=== PATIENT | female | born 1940 | race Caucasian/White ===

== ENCOUNTER 2018-11-10 08:44 | Emergency (ER) | payer MEDICARE, MEDICAID ==
[~2018-11-10] VITALS: Ht 152.4 cm; Wt 60.0 kg
[~2018-11-10 08:44] MED LIST: ACET-2178 PO; ALBU18HF2 IH; ALEN70TA68 PO; AMLO10TA80 PO; ASPI-1393 PO; BECL8.7A6 INH; CALC-38 PO; CYCL5TAB PO; FERR325T6 PO; FOLI-43 PO; FURO40TA5 PO; GABA-529 PO; LEVO100T9 PO; LOSA50TA41 PO; METF-416 PO; OCD PO; OMEP20TA2 PO; SITA100T11 PO
[2018-11-10 10:45] LABS: BASOPHILS % 0.9 % (0.0-2.0); EOSINOPHILS % 0.5 % (0.0-5.0); HEMATOCRIT. 41.7 % (36.0-48.0); HEMOGLOBIN. 14.2 g/dL (12.0-16.0); LYMPHOCYTES % 23.5 % (20.0-50.0); MEAN CORPUSCULAR HEMOGLOBIN 27.9 pg (28.0-32.0); MEAN CORPUSCULAR VOLUME 81.8 fL (81.0-99.0); MEAN PLATELET VOLUME 9.6 fl (7.4-10.4); MONOCYTES % 6.1 % (2.0-8.0); PLATELET 137 x1000/uL (130-400); RED BLOOD CELL COUNT 5.09 mill/uL (4.2-5.4); RED CELL DISTRIBUTION WIDTH 14.3 % (11.6-14.6)
[2018-11-10 10:49] LABS: CHLORIDE 102 mEq/L (98-107)
[2018-11-10] MEDS ORDERED: SODIUM CHLORIDE 0.9% 1,000 ML IV ONE (11:25)
[2018-11-10] MEDS ORDERED: TRAMADOL 50MG TABLET PO ONE (11:30)
[2018-11-10] MEDS ORDERED: INSULIN REGULAR (HUMULIN R) 300UNITS/3ML IV ONE (11:30)
[2018-11-10 12:33] VITALS: BP 141/50
[2018-11-10] MEDS ORDERED: CLOTRIMAZOLE 1% CREAM 30GM TOP SCH (21:00)
== END 2018-11-10 12:47 | disposition home or self-care (01) ==
LOC: ER 08:44
DX: N76.2 Acute vulvitis (principal); B37.3 Candidiasis of vulva and vagina; E11.65 Type 2 diabetes mellitus with hyperglycemia; I10 Essential (primary) hypertension; Z79.4 Long term (current) use of insulin
CPT/HCPCS: 36415; 80053; 85025; 93005; 96374; 99284; J1815; J7030

== ENCOUNTER 2020-05-15 08:57 | Inpatient (IN) | payer MEDICARE, MEDICAID ==
[~2020-05-15] VITALS: Ht 152.4 cm; Wt 55.8 kg
[~2020-05-15 08:57] MED LIST changes: -ACET-2178 PO; -ALBU18HF2 IH; -ALEN70TA68 PO; -ASPI-1393 PO; +ASPI-1497 PO; -BECL8.7A6 INH; -CALC-38 PO; -CYCL5TAB PO; -FERR325T6 PO; -FOLI-43 PO; -FURO40TA5 PO; -GABA-529 PO; -LOSA50TA41 PO; -OCD PO; -OMEP20TA2 PO; -SITA100T11 PO; +TOPUD PO
[2020-05-15] MEDS ORDERED: IPRATROPIUM BROMIDE (0.02%) 0.5MG/2.5ML NEB HHN STA (09:39)
[2020-05-15] MEDS ORDERED: ALBUTEROL (0.083%) 2.5MG/3ML NEB HHN STA (09:39)
[2020-05-15] MEDS ORDERED: SODIUM CHLORIDE 0.9% 250 ML IV ONE (09:45)
[2020-05-15] MEDS ORDERED: ASPIRIN 81MG TABLET PO ONE (09:45)
[2020-05-15 10:39] LABS: BASOPHILS % 0.7 % (0.0-2.0); EOSINOPHILS % 0.1 % (0.0-5.0); HEMOGLOBIN. 11.8 g/dL (12.0-16.0); LYMPHOCYTES % 9.5 % (20.0-50.0); MEAN CORPUSCULAR VOLUME 82.2 fL (81.0-99.0); MEAN PLATELET VOLUME 9.6 fl (7.4-10.4); MONOCYTES % 6.8 % (2.0-8.0); NEUTROPHILS % 82.9 % (40.0-76.0); PLATELET 122 x1000/uL (130-400); RED BLOOD CELL COUNT 4.38 mill/uL (4.2-5.4); RED CELL DISTRIBUTION WIDTH 15.8 % (11.6-14.6)
[2020-05-15 10:47] LABS: CHLORIDE 106 mEq/L (98-107)
[2020-05-15 10:50] LABS: D-DIMER 3.43 mg/L FEU (<0.50); INR 1.1; PROTHROMBIN TIME 11.7 sec (9.6-11.0)
[2020-05-15] MEDS ORDERED: LEVOFLOXACIN 750MG PREMIX 150 ML IV ONE (11:00)
[2020-05-15 11:44] LABS: CLARITY URINE CLEAR (CLEAR); COLOR URINE YELLOW (YELLOW); KETONES URINE NEGATIVE (NEGATIVE); LEUKOCYTE ESTERASE URINE TRACE (NEGATIVE); NITRITE URINE NEGATIVE (NEGATIVE); OCCULT BLOOD URINE NEGATIVE (NEGATIVE); PROTEIN URINE TRACE (NEGATIVE); UROBILINOGEN URINE 0.2 E.U./dL (0.2-1.0)
[2020-05-15] MEDS ORDERED: LEVOFLOXACIN 500MG PREMIX 100 ML IV SCH (13:15)
[2020-05-15] MEDS ORDERED: ACETAMINOPHEN 325MG TABLET PO PRN (13:15)
[2020-05-15] MEDS ORDERED: DOCUSATE SODIUM 100MG CAPSULE PO PRN (13:15)
[2020-05-15] MEDS ORDERED: ONDANSETRON HCL 4MG/2ML INJ IV PRN (13:15)
[2020-05-15] MEDS ORDERED: CLONIDINE 0.1MG TABLET PO PRN (13:15)
[2020-05-15] MEDS ORDERED: ENOXAPARIN 40MG/0.4ML SYR SUBCUT SCH (13:15)
[2020-05-15] MEDS ORDERED: MAGNESIUM/ALUMINUM HYDROXIDE/SIMETHICONE 30ML UDC PO PRN (13:15)
[2020-05-15] MEDS ORDERED: GUAIFENESIN 200MG/10ML SUGAR FREE UDC PO PRN (13:15)
[2020-05-15] MEDS ORDERED: DILTIAZEM HCL 30MG TABLET PO PRN (13:30)
[2020-05-15] MEDS ORDERED: IOHEXOL-350 100 ML BOTTLE ONE (14:55)
[2020-05-15] MEDS: ENOXAPARIN 60MG/0.6ML SYR SUBCUT SCH (16:00)
[2020-05-15] MEDS ORDERED: METOPROLOL TARTRATE 25MG TABLET PO SCH (17:00)
[2020-05-15] MEDS ORDERED: DEXTROSE 50% WATER 50ML SYRINGE IV PRN (22:45)
[2020-05-15] MEDS ORDERED: ATOR40TA70 PO (23:48)
[2020-05-15 23:49] VITALS: BP 124/68
[2020-05-16 00:01] VITALS: BP 108/54
[2020-05-16 04:18] VITALS: BP 111/57
[2020-05-16] MEDS: LEVOTHYROXINE SODIUM 100MCG TABLET PO SCH (06:03)
[2020-05-16] MEDS: ENOXAPARIN 60MG/0.6ML SYR SUBCUT SCH ×2 (06:03→18:25)
[2020-05-16 06:05] LABS: CHLORIDE 108 mEq/L (98-107)
[2020-05-16] MEDS: BLOOD SUGAR DIAGNOSTIC STRIP TEST SCH ×4 (06:08→20:50)
[2020-05-16] MEDS: INSULIN LISPRO 100 UNITS/ML SUBCUT SCH ×4 (06:08→21:01)
[2020-05-16 06:12] LABS: LDL CHOLESTEROL 26 mg/dL (5-100)
[2020-05-16 06:13] LABS: HDL CHOLESTEROL 32 mg/dL (40-59); T4 FREE 1.44 ng/dL (0.76-1.46)
[2020-05-16 06:20] LABS: BASOPHILS % 0.5 % (0.0-2.0); EOSINOPHILS % 0.6 % (0.0-5.0); HEMATOCRIT. 35.1 % (36.0-48.0); HEMOGLOBIN. 11.6 g/dL (12.0-16.0); LYMPHOCYTES % 13.4 % (20.0-50.0); MEAN CORPUSCULAR HEMOGLOBIN 27.3 pg (28.0-32.0); MEAN CORPUSCULAR VOLUME 82.4 fL (81.0-99.0); MEAN PLATELET VOLUME 9.6 fl (7.4-10.4); MONOCYTES % 9.7 % (2.0-8.0); NEUTROPHILS % 75.8 % (40.0-76.0); PLATELET 117 x1000/uL (130-400); RED BLOOD CELL COUNT 4.26 mill/uL (4.2-5.4); RED CELL DISTRIBUTION WIDTH 15.7 % (11.6-14.6)
[2020-05-16 08:00] VITALS: BP 110/55
[2020-05-16] MEDS: ASPIRIN 81MG EC TABLET PO SCH (08:49)
[2020-05-16] MEDS ORDERED: LEVOFLOXACIN 500MG PREMIX 100 ML IV SCH (09:00)
[2020-05-16] MEDS ORDERED: POTASSIUM CHLORIDE 20MEQ TABLET SR PO NR (10:30)
[2020-05-16 12:00] VITALS: BP 105/56
[2020-05-16] MEDS: POTASSIUM CHLORIDE 20MEQ TABLET SR PO SCH (13:15)
[2020-05-16 16:00] VITALS: BP 113/58
[2020-05-16 16:17] LABS: CREATINE KINASE 33 IU/L (26-192)
[2020-05-16 16:18] LABS: CREATINE KINASE MB FRACTION < 1.0 ng/mL (0.5-3.6)
[2020-05-16 20:00] VITALS: BP 113/86
[2020-05-17] VITALS: BP 142/55
[2020-05-17 00:25] LABS: CREATINE KINASE 29 IU/L (26-192); CREATINE KINASE MB FRACTION < 1.0 ng/mL (0.5-3.6)
[2020-05-17 04:00] VITALS: BP 107/72
[2020-05-17] MEDS: ENOXAPARIN 60MG/0.6ML SYR SUBCUT SCH ×2 (05:35→18:14)
[2020-05-17 07:05] LABS: BASOPHILS % 0.7 % (0.0-2.0); EOSINOPHILS % 2.7 % (0.0-5.0); HEMATOCRIT. 34.1 % (36.0-48.0); HEMOGLOBIN. 11.4 g/dL (12.0-16.0); LYMPHOCYTES % 18.7 % (20.0-50.0); MEAN CORPUSCULAR HEMOGLOBIN 27.6 pg (28.0-32.0); MEAN CORPUSCULAR VOLUME 82.8 fL (81.0-99.0); MEAN PLATELET VOLUME 9.6 fl (7.4-10.4); MONOCYTES % 10.3 % (2.0-8.0); NEUTROPHILS % 67.6 % (40.0-76.0); PLATELET 123 x1000/uL (130-400); RED BLOOD CELL COUNT 4.12 mill/uL (4.2-5.4); RED CELL DISTRIBUTION WIDTH 15.7 % (11.6-14.6)
[2020-05-17] MEDS: BLOOD SUGAR DIAGNOSTIC STRIP TEST SCH ×4 (07:10→19:46)
[2020-05-17 07:15] LABS: CHLORIDE 112 mEq/L (98-107)
[2020-05-17 07:25] LABS: CREATINE KINASE 27 IU/L (26-192)
[2020-05-17 07:28] LABS: CREATINE KINASE MB FRACTION < 1.0 ng/mL (0.5-3.6)
[2020-05-17] MEDS: INSULIN LISPRO 100 UNITS/ML SUBCUT SCH ×4 (07:40→19:45)
[2020-05-17 08:00] VITALS: BP 123/64
[2020-05-17] MEDS: POTASSIUM CHLORIDE 20MEQ TABLET SR PO SCH (09:00)
[2020-05-17] MEDS: LEVOTHYROXINE SODIUM 100MCG TABLET PO SCH (10:00)
[2020-05-17] MEDS: ASPIRIN 81MG EC TABLET PO SCH (10:01)
[2020-05-17] MEDS ORDERED: LEVOFLOXACIN 750MG PREMIX 150 ML IV SCH (11:00)
[2020-05-17] MEDS ORDERED: IPRATROPIUM BROMIDE (0.02%) 0.5MG/2.5ML NEB HHN PRN (11:30)
[2020-05-17] MEDS ORDERED: FUROSEMIDE 40MG/4ML VIAL IVP SCH (11:30)
[2020-05-17 12:00] VITALS: BP 117/64
[2020-05-17 16:00] VITALS: BP 111/67
[2020-05-17 20:00] VITALS: BP 114/79
[2020-05-18] VITALS: BP 111/86
[2020-05-18 04:00] VITALS: BP 106/51
[2020-05-18] MEDS: BLOOD SUGAR DIAGNOSTIC STRIP TEST SCH ×3 (05:00→17:10)
[2020-05-18] MEDS: INSULIN LISPRO 100 UNITS/ML SUBCUT SCH ×3 (05:00→17:40)
[2020-05-18] MEDS: ENOXAPARIN 60MG/0.6ML SYR SUBCUT SCH (05:00)
[2020-05-18 06:58] LABS: CHLORIDE 111 mEq/L (98-107)
[2020-05-18 08:30] VITALS: BP 115/66
[2020-05-18] MEDS: LEVOTHYROXINE SODIUM 100MCG TABLET PO SCH (09:01)
[2020-05-18] MEDS: ASPIRIN 81MG EC TABLET PO SCH (09:02)
[2020-05-18] MEDS: POTASSIUM CHLORIDE 20MEQ TABLET SR PO SCH (09:02)
[2020-05-18 12:20] VITALS: BP 110/57
[2020-05-18] MEDS ORDERED: POTASSIUM CHLORIDE INJ 40 MEQ in DEXT 5% WATER 250 ML IV SCH (14:00)
[2020-05-18 16:00] VITALS: BP 114/61
[2020-05-18] MEDS ORDERED: POTASSIUM CHLORIDE 20MEQ TABLET SR PO NR (17:45)
[2020-05-18 18:30] VITALS: BP 113/62
[2020-05-19] MEDS ORDERED: ENOXAPARIN 40MG/0.4ML SYR SUBCUT SCH (09:00)
== END 2020-05-18 19:25 | disposition home health service (06) | DRG 308 ==
LOC: ER 08:57 → 8WST 12:07 → EDBEDREQ 12:09 → ENRESERV 20:16
PROVIDERS: ADMIT Hospitalist; ATTEND Hospitalist
DX: I48.0 Paroxysmal atrial fibrillation (principal); J96.00 Acute respiratory failure, unspecified whether with hypoxia or hypercapnia; J91.8 Pleural effusion in other conditions classified elsewhere; D69.6 Thrombocytopenia, unspecified; I27.20 Pulmonary hypertension, unspecified; I10 Essential (primary) hypertension; E87.70 Fluid overload, unspecified; E87.6 Hypokalemia; E78.5 Hyperlipidemia, unspecified; E11.9 Type 2 diabetes mellitus without complications; E03.9 Hypothyroidism, unspecified; K80.20 Calculus of gallbladder without cholecystitis without obstruction; Z95.3 Presence of xenogenic heart valve; Z90.11 Acquired absence of right breast and nipple; Z88.0 Allergy status to penicillin; Z79.82 Long term (current) use of aspirin; Z79.84 Long term (current) use of oral hypoglycemic drugs; Z79.899 Other long term (current) drug therapy; Z86.16 Personal history of COVID-19; Z85.3 Personal history of malignant neoplasm of breast
CPT/HCPCS: 36415; 71045; 71275; 80048; 80053; 80061; 81003; 82550; 82553; 82962; 83036; 83605; 83735; 83880; 84145; 84439; 84443; 84484; 85025; 85379; 93005; 93306; 93970; 94640; 99291; J1650; J1815; J1940; J1956; J3480; J7030; J7060; Q9967

== ENCOUNTER 2020-09-17 20:24 | Inpatient (IN) | payer MEDICARE, MEDICAID ==
[~2020-09-17] VITALS: Ht 152.4 cm; Wt 57.2 kg
[~2020-09-17 20:24] MED LIST changes: +ATOR40TA70 PO; -TOPUD PO
[2020-09-17] MEDS ORDERED: ALBUTEROL (0.083%) 2.5MG/3ML NEB HHN ONE (21:00)
[2020-09-17 22:49] LABS: BASOPHILS % 0.6 % (0.0-2.0); EOSINOPHILS % 1.9 % (0.0-5.0); HEMATOCRIT. 36.4 % (36.0-48.0); HEMOGLOBIN. 11.3 g/dL (12.0-16.0); LYMPHOCYTES % 15.7 % (20.0-50.0); MEAN CORPUSCULAR HEMOGLOBIN 26.7 pg (28.0-32.0); MEAN CORPUSCULAR VOLUME 86.3 fL (81.0-99.0); NEUTROPHILS % 75.8 % (40.0-76.0); PLATELET 153 x1000/uL (130-400); RED BLOOD CELL COUNT 4.22 mill/uL (4.2-5.4); RED CELL DISTRIBUTION WIDTH 16.8 % (11.6-14.6)
[2020-09-17 22:55] LABS: CHLORIDE 109 mEq/L (98-107)
[2020-09-17 22:58] LABS: D-DIMER 1.51 mg/L FEU (<0.50); PROTHROMBIN TIME 11.2 sec (9.6-11.0)
[2020-09-17] MEDS ORDERED: FUROSEMIDE 20MG/2ML VIAL IVP ONE (23:15)
[2020-09-18] VITALS (7 sets, daily range): BP systolic 132–151; BP diastolic 66–85
[2020-09-18 05:53] LABS: BASOPHILS % 0.8 % (0.0-2.0); EOSINOPHILS % 1.6 % (0.0-5.0); HEMATOCRIT. 32.8 % (36.0-48.0); HEMOGLOBIN. 10.9 g/dL (12.0-16.0); LYMPHOCYTES % 16.7 % (20.0-50.0); MEAN CORPUSCULAR HEMOGLOBIN 26.9 pg (28.0-32.0); MEAN CORPUSCULAR VOLUME 81.1 fL (81.0-99.0); MEAN PLATELET VOLUME 9.1 fl (7.4-10.4); MONOCYTES % 6.5 % (2.0-8.0); NEUTROPHILS % 74.4 % (40.0-76.0); PLATELET 142 x1000/uL (130-400); RED BLOOD CELL COUNT 4.05 mill/uL (4.2-5.4)
[2020-09-18 05:58] LABS: CHLORIDE 108 mEq/L (98-107)
[2020-09-18] MEDS ORDERED: GUAIFENESIN 200MG/10ML SUGAR FREE UDC PO PRN (06:15)
[2020-09-18] MEDS ORDERED: ONDANSETRON HCL 4MG/2ML INJ IV PRN (06:15)
[2020-09-18] MEDS ORDERED: CLONIDINE 0.1MG TABLET PO PRN (06:15)
[2020-09-18] MEDS ORDERED: ACETAMINOPHEN 325MG TABLET PO PRN (06:15)
[2020-09-18] MEDS ORDERED: IPRATROPIUM/ALBUTEROL 0.5-3(2.5)MG/3ML NEB HHN PRN (06:15)
[2020-09-18] MEDS ORDERED: MAGNESIUM/ALUMINUM HYDROXIDE/SIMETHICONE 30ML UDC PO PRN (08:00)
[2020-09-18] MEDS: ASPIRIN 81MG EC TABLET PO SCH (08:10)
[2020-09-18] MEDS: LEVOTHYROXINE SODIUM 100MCG TABLET PO SCH (08:10)
[2020-09-18] MEDS: METOPROLOL TARTRATE 25MG TABLET PO SCH ×2 (08:10→21:22)
[2020-09-18] MEDS: METFORMIN HCL 500MG TABLET PO SCH ×2 (08:10→18:29)
[2020-09-18] MEDS: FUROSEMIDE 20MG/2ML VIAL IV SCH (08:11)
[2020-09-18] MEDS ORDERED: DOCUSATE SODIUM 100MG CAPSULE PO PRN (09:00)
[2020-09-18 09:18] LABS: CLARITY URINE CLEAR (CLEAR); COLOR URINE YELLOW (YELLOW); KETONES URINE NEGATIVE (NEGATIVE); LEUKOCYTE ESTERASE URINE NEGATIVE (NEGATIVE); NITRITE URINE NEGATIVE (NEGATIVE); OCCULT BLOOD URINE NEGATIVE (NEGATIVE); PH URINE 7.5 (4.5-8.0); PROTEIN URINE NEGATIVE (NEGATIVE); SPECIFIC GRAVITY URINE 1.012 (1.005-1.030); UROBILINOGEN URINE 0.2 E.U./dL (0.2-1.0)
[2020-09-18] MEDS ORDERED: DIGOXIN 500MCG/2ML AMP IV NR (09:45)
[2020-09-18] MEDS ORDERED: CARV6.2548 MT (14:23)
[2020-09-18] MEDS ORDERED: DEXL30CA3 PO ×2 (14:23)
[2020-09-18] MEDS ORDERED: LOPE2CAP MT (14:23)
[2020-09-18] MEDS ORDERED: LEVO100T9 MT (15:54)
[2020-09-18] MEDS ORDERED: MEGE40TA7 MT (15:54)
[2020-09-18] MEDS ORDERED: LORA10TA7 MT (15:54)
[2020-09-18] MEDS ORDERED: OCD MT (15:54)
[2020-09-18] MEDS ORDERED: IBUP-2028 MT (15:54)
[2020-09-18] MEDS ORDERED: ALBU6.7H9 INH (15:56)
[2020-09-18 15:59] LABS: CREATINE KINASE 36 IU/L (26-192)
[2020-09-18 16:00] LABS: CREATINE KINASE MB FRACTION < 1.0 ng/mL (0.5-3.6)
[2020-09-18] MEDS ORDERED: *PATIENT'S OWN MEDICATION STORAGE XX SCH (17:00)
[2020-09-18] MEDS ORDERED: DEXTROSE 50% WATER 50ML SYRINGE IV PRN (19:15)
[2020-09-18] MEDS: INSULIN LISPRO 100 UNITS/ML SUBCUT SCH (21:21)
[2020-09-18] MEDS: ATORVASTATIN CALCIUM 40MG TABLET PO SCH (21:22)
[2020-09-18] MEDS: BLOOD SUGAR DIAGNOSTIC STRIP TEST SCH (21:23)
[2020-09-18 23:46] LABS: CREATINE KINASE 51 IU/L (26-192)
[2020-09-18 23:47] LABS: CREATINE KINASE MB FRACTION < 1.0 ng/mL (0.5-3.6)
[2020-09-19] VITALS (11 sets, daily range): BP systolic 117–180; BP diastolic 58–96
[2020-09-19 06:55] LABS: CHLORIDE 110 mEq/L (98-107)
[2020-09-19 07:00] LABS: HEMATOCRIT. 33.9 % (36.0-48.0); HEMOGLOBIN. 11.3 g/dL (12.0-16.0); MEAN CORPUSCULAR HEMOGLOBIN 27.2 pg (28.0-32.0); MEAN CORPUSCULAR VOLUME 81.4 fL (81.0-99.0); MEAN PLATELET VOLUME 9.7 fl (7.4-10.4); PLATELET 147 x1000/uL (130-400); RED BLOOD CELL COUNT 4.17 mill/uL (4.2-5.4); RED CELL DISTRIBUTION WIDTH 16.7 % (11.6-14.6)
[2020-09-19 07:03] LABS: LDL CHOLESTEROL 42 mg/dL (5-100)
[2020-09-19 07:04] LABS: CREATINE KINASE 36 IU/L (26-192)
[2020-09-19 07:05] LABS: HDL CHOLESTEROL 29 mg/dL (40-59)
[2020-09-19 07:07] LABS: CREATINE KINASE MB FRACTION < 1.0 ng/mL (0.5-3.6)
[2020-09-19] MEDS: BLOOD SUGAR DIAGNOSTIC STRIP TEST SCH ×4 (07:30→20:48)
[2020-09-19] MEDS: METOPROLOL TARTRATE 25MG TABLET PO SCH ×2 (09:59→20:48)
[2020-09-19] MEDS: INSULIN LISPRO 100 UNITS/ML SUBCUT SCH ×4 (09:59→20:49)
[2020-09-19] MEDS: METFORMIN HCL 500MG TABLET PO SCH ×2 (09:59→17:25)
[2020-09-19] MEDS: FUROSEMIDE 20MG/2ML VIAL IV SCH (10:00)
[2020-09-19] MEDS: LEVOTHYROXINE SODIUM 100MCG TABLET PO SCH (10:00)
[2020-09-19] MEDS: ASPIRIN 81MG EC TABLET PO SCH (10:02)
[2020-09-19] MEDS: ENOXAPARIN 30MG/0.3ML SYR SUBCUT SCH (12:49)
[2020-09-19 17:16] LABS: PLATELET ESTIMATE NORMAL
[2020-09-19] MEDS: ATORVASTATIN CALCIUM 40MG TABLET PO SCH (20:48)
[2020-09-20] VITALS (12 sets, daily range): BP systolic 108–171; BP diastolic 62–102
[2020-09-20 07:14] LABS: BASOPHILS % 1.2 % (0.0-2.0); EOSINOPHILS % 2.4 % (0.0-5.0); HEMATOCRIT. 35.3 % (36.0-48.0); HEMOGLOBIN. 11.7 g/dL (12.0-16.0); LYMPHOCYTES % 20.6 % (20.0-50.0); MEAN CORPUSCULAR HEMOGLOBIN 26.9 pg (28.0-32.0); MEAN CORPUSCULAR VOLUME 81.3 fL (81.0-99.0); MEAN PLATELET VOLUME 9.3 fl (7.4-10.4); MONOCYTES % 7.9 % (2.0-8.0); NEUTROPHILS % 67.9 % (40.0-76.0); PLATELET 171 x1000/uL (130-400); RED BLOOD CELL COUNT 4.34 mill/uL (4.2-5.4); RED CELL DISTRIBUTION WIDTH 16.8 % (11.6-14.6)
[2020-09-20] MEDS: BLOOD SUGAR DIAGNOSTIC STRIP TEST SCH ×2 (07:30→09:51)
[2020-09-20 07:31] LABS: CHLORIDE 111 mEq/L (98-107)
[2020-09-20] MEDS: FUROSEMIDE 20MG/2ML VIAL IV SCH (09:51)
[2020-09-20] MEDS: ENOXAPARIN 30MG/0.3ML SYR SUBCUT SCH (09:51)
[2020-09-20] MEDS: METFORMIN HCL 500MG TABLET PO SCH (09:51)
[2020-09-20] MEDS: LEVOTHYROXINE SODIUM 100MCG TABLET PO SCH (09:52)
[2020-09-20] MEDS: ASPIRIN 81MG EC TABLET PO SCH (09:52)
[2020-09-20] MEDS: METOPROLOL TARTRATE 25MG TABLET PO SCH (09:52)
[2020-09-20] MEDS: INSULIN LISPRO 100 UNITS/ML SUBCUT SCH ×2 (10:05→12:50)
[2020-09-20] MEDS ORDERED: METO25TA6 PO (14:53)
== END 2020-09-20 17:14 | disposition home or self-care (01) | DRG 291 ==
LOC: ER 21:11 → 5EST 23:10 → EDBEDREQ 23:18 → EDBEDREQTM 23:18 → ENRESERV 09-18 11:38 → 5EST 09-18 12:19 → UNDOADMIN 09-18 12:19 → 5EST 09-20 06:54
PROVIDERS: ADMIT Family Medicine Adult Medicine; ATTEND Family Medicine Adult Medicine
DX: I11.0 Hypertensive heart disease with heart failure (principal); J96.01 Acute respiratory failure with hypoxia; J47.0 Bronchiectasis with acute lower respiratory infection; E44.1 Mild protein-calorie malnutrition; I50.33 Acute on chronic diastolic (congestive) heart failure; I42.9 Cardiomyopathy, unspecified; D64.9 Anemia, unspecified; I48.91 Unspecified atrial fibrillation; I35.0 Nonrheumatic aortic (valve) stenosis; E03.9 Hypothyroidism, unspecified; E11.9 Type 2 diabetes mellitus without complications; E78.5 Hyperlipidemia, unspecified; I25.10 Atherosclerotic heart disease of native coronary artery without angina pectoris; K21.9 Gastro-esophageal reflux disease without esophagitis; Z85.3 Personal history of malignant neoplasm of breast; Z86.16 Personal history of COVID-19; Z87.01 Personal history of pneumonia (recurrent); Z90.10 Acquired absence of unspecified breast and nipple; Z90.710 Acquired absence of both cervix and uterus; Z95.3 Presence of xenogenic heart valve; Z88.0 Allergy status to penicillin; Z79.899 Other long term (current) drug therapy; Z79.82 Long term (current) use of aspirin; Z68.24 Body mass index [BMI] 24.0-24.9, adult
CPT/HCPCS: 36415; 71045; 71275; 80048; 80053; 80061; 81003; 82550; 82553; 82962; 83036; 83605; 83735; 83880; 84145; 84439; 84443; 84484; 85025; 85379; 93005; 93306; 93970; 94640; 97116; 97162; 97166; 99285; J1160; J1650; J1815; J1940; J2405

== ENCOUNTER 2021-08-20 20:45 | Inpatient (IN) | payer MEDICARE, MEDICAID ==
[~2021-08-20] VITALS: Ht 152.4 cm; Wt 56.7 kg
[~2021-08-20 20:45] MED LIST changes: +ALBU6.7H9 INH; +CARV6.2548 MT; +DEXL30CA3 PO; +IBUP-2028 MT; +LOPE2CAP MT; +LORA10TA7 MT; +MEGE40TA7 MT; +METO25TA6 PO; +OCD MT
[2021-08-20] MEDS ORDERED: ASPIRIN 81MG TABLET PO ONE (21:30)
[2021-08-20 21:49] LABS: BASOPHILS % 0.3 % (0.0-2.0); EOSINOPHILS % 2.8 % (0.0-5.0); HEMATOCRIT. 32.5 % (36.0-48.0); HEMOGLOBIN. 10.9 g/dL (12.0-16.0); LYMPHOCYTES % 15.8 % (20.0-50.0); MEAN CORPUSCULAR HEMOGLOBIN 27.2 pg (28.0-32.0); MEAN CORPUSCULAR VOLUME 80.6 fL (81.0-99.0); MEAN PLATELET VOLUME 9.1 fl (7.4-10.4); MONOCYTES % 9.6 % (2.0-8.0); NEUTROPHILS % 71.5 % (40.0-76.0); PLATELET 167 x1000/uL (130-400); RED BLOOD CELL COUNT 4.03 mill/uL (4.2-5.4); RED CELL DISTRIBUTION WIDTH 14.7 % (11.6-14.6)
[2021-08-20 21:57] LABS: CHLORIDE 108 mEq/L (98-107)
[2021-08-20 23:26] LABS: CLARITY URINE CLEAR (CLEAR); COLOR URINE YELLOW (YELLOW); KETONES URINE NEGATIVE (NEGATIVE); LEUKOCYTE ESTERASE URINE TRACE (NEGATIVE); NITRITE URINE NEGATIVE (NEGATIVE); OCCULT BLOOD URINE NEGATIVE (NEGATIVE); PH URINE 5.5 (4.5-8.0); PROTEIN URINE NEGATIVE (NEGATIVE); SPECIFIC GRAVITY URINE 1.006 (1.005-1.030); UROBILINOGEN URINE 0.2 E.U./dL (0.2-1.0)
[2021-08-20] MEDS ORDERED: MORPHINE SULFATE 4 MG/ML CPJ (NOT FOR IM USE) IV ONE (23:30)
[2021-08-20] MEDS ORDERED: FUROSEMIDE 100MG/10ML VIAL IVP NR (23:30)
[2021-08-21] MEDS ORDERED: SODIUM CHLORIDE 0.9% 500 ML IV ONE (01:00)
[2021-08-21 03:45] VITALS: BP 121/54
[2021-08-21 04:00] VITALS: BP 121/54
[2021-08-21] MEDS ORDERED: DEXTROSE 50% WATER 50ML SYRINGE IV PRN (06:45)
[2021-08-21] MEDS ORDERED: NON FORMULARY PATIENT HOME MED XX SCH ×2 (06:45)
[2021-08-21] MEDS ORDERED: ALBUTEROL 6.7GM HFA INHALER INH SCH (06:45)
[2021-08-21] MEDS ORDERED: ACETAMINOPHEN 325MG TABLET PO PRN (06:45)
[2021-08-21] MEDS: BLOOD SUGAR DIAGNOSTIC STRIP TEST SCH ×4 (07:40→21:20)
[2021-08-21] MEDS: INSULIN LISPRO 100 UNITS/ML SUBCUT SCH ×4 (08:10→21:00)
[2021-08-21 08:30] VITALS: BP 124/77
[2021-08-21] MEDS ORDERED: METOPROLOL TARTRATE 25MG TABLET PO SCH (09:00)
[2021-08-21] MEDS ORDERED: LEVOTHYROXINE SODIUM 100MCG TABLET PO SCH (09:00)
[2021-08-21] MEDS: CARVEDILOL 6.25 MG TABLET PO SCH ×2 (09:26→17:00)
[2021-08-21] MEDS: ASPIRIN 81MG EC TABLET PO SCH (09:27)
[2021-08-21] MEDS: CALCIUM CARBONATE/VITAMIN D3 500MG TABLET PO SCH ×2 (09:27→18:07)
[2021-08-21] MEDS: FUROSEMIDE 40MG/4ML VIAL IVP SCH (09:27)
[2021-08-21] MEDS: AMLODIPINE 10MG TABLET PO SCH (09:27)
[2021-08-21] MEDS: PANTOPRAZOLE 40MG DR TABLET PO SCH (09:30)
[2021-08-21] MEDS: METFORMIN HCL 500MG TABLET PO SCH ×2 (09:31→18:07)
[2021-08-21] MEDS: MEGESTROL ACETATE 40MG TABLET PO SCH (09:33)
[2021-08-21 11:51] VITALS: BP 103/54
[2021-08-21] MEDS ORDERED: IPRATROPIUM/ALBUTEROL 0.5-3(2.5)MG/3ML NEB HHN PRN (13:00)
[2021-08-21 16:00] VITALS: BP 95/53
[2021-08-21 20:00] VITALS: BP 106/41
[2021-08-21] MEDS: IPRATROPIUM/ALBUTEROL 0.5-3(2.5)MG/3ML NEB HHN SCH (21:08)
[2021-08-21] MEDS: BUDESONIDE 0.5MG/2ML NEB HHN SCH (21:08)
[2021-08-21] MEDS: ATORVASTATIN CALCIUM 40MG TABLET PO SCH (21:20)
[2021-08-22] VITALS: BP 107/52
[2021-08-22] MEDS: IPRATROPIUM/ALBUTEROL 0.5-3(2.5)MG/3ML NEB HHN SCH ×3 (02:16→13:52)
[2021-08-22 04:00] VITALS: BP 117/47
[2021-08-22 07:26] LABS: BASOPHILS % 0.8 % (0.0-2.0); EOSINOPHILS % 1.8 % (0.0-5.0); HEMATOCRIT. 35.2 % (36.0-48.0); HEMOGLOBIN. 11.8 g/dL (12.0-16.0); LYMPHOCYTES % 21.4 % (20.0-50.0); MEAN CORPUSCULAR HEMOGLOBIN 27.1 pg (28.0-32.0); MEAN CORPUSCULAR VOLUME 80.8 fL (81.0-99.0); MEAN PLATELET VOLUME 8.9 fl (7.4-10.4); MONOCYTES % 8.6 % (2.0-8.0); NEUTROPHILS % 67.4 % (40.0-76.0); PLATELET 179 x1000/uL (130-400); RED BLOOD CELL COUNT 4.36 mill/uL (4.2-5.4); RED CELL DISTRIBUTION WIDTH 14.9 % (11.6-14.6)
[2021-08-22] MEDS: BLOOD SUGAR DIAGNOSTIC STRIP TEST SCH ×4 (07:40→21:00)
[2021-08-22 07:56] LABS: CHLORIDE 112 mEq/L (98-107)
[2021-08-22 08:01] VITALS: BP 119/63
[2021-08-22] MEDS: INSULIN LISPRO 100 UNITS/ML SUBCUT SCH ×4 (08:10→22:02)
[2021-08-22] MEDS: MEGESTROL ACETATE 40MG TABLET PO SCH (08:22)
[2021-08-22] MEDS: PANTOPRAZOLE 40MG DR TABLET PO SCH (08:22)
[2021-08-22] MEDS: METFORMIN HCL 500MG TABLET PO SCH ×2 (08:22→17:48)
[2021-08-22] MEDS: ASPIRIN 81MG EC TABLET PO SCH (08:22)
[2021-08-22] MEDS: CALCIUM CARBONATE/VITAMIN D3 500MG TABLET PO SCH ×2 (08:22→17:49)
[2021-08-22] MEDS: AMLODIPINE 10MG TABLET PO SCH (08:23)
[2021-08-22] MEDS: LEVOTHYROXINE SODIUM 100MCG TABLET PO SCH (08:23)
[2021-08-22] MEDS: FUROSEMIDE 40MG/4ML VIAL IVP SCH (08:24)
[2021-08-22] MEDS: CARVEDILOL 6.25 MG TABLET PO SCH ×2 (08:24→17:48)
[2021-08-22] MEDS: BUDESONIDE 0.5MG/2ML NEB HHN SCH ×2 (09:19→21:18)
[2021-08-22 11:06] LABS: HDL CHOLESTEROL 25 mg/dL (40-59); LDL CHOLESTEROL 36 mg/dL (5-100); T4 FREE 1.53 ng/dL (0.76-1.46)
[2021-08-22] MEDS ORDERED: POTASSIUM CHLORIDE 20MEQ TABLET SR PO NR (11:30)
[2021-08-22 11:48] VITALS: BP 105/54
[2021-08-22] MEDS: LEVOFLOXACIN 500MG TABLET PO SCH (11:57)
[2021-08-22 16:00] VITALS: BP 102/51
[2021-08-22 16:30] LABS: CREATINE KINASE 39 IU/L (26-192); CREATINE KINASE MB FRACTION < 1.0 ng/mL (0.5-3.6)
[2021-08-22 20:00] VITALS: BP 134/65
[2021-08-22] MEDS: ATORVASTATIN CALCIUM 40MG TABLET PO SCH (22:01)
[2021-08-23] VITALS: BP 143/63
[2021-08-23 02:27] LABS: CREATINE KINASE 42 IU/L (26-192); CREATINE KINASE MB FRACTION < 1.0 ng/mL (0.5-3.6)
[2021-08-23 04:00] VITALS: BP 113/43
[2021-08-23] MEDS: INSULIN LISPRO 100 UNITS/ML SUBCUT SCH ×2 (06:42→13:10)
[2021-08-23] MEDS: BLOOD SUGAR DIAGNOSTIC STRIP TEST SCH ×2 (06:42→12:00)
[2021-08-23 07:19] LABS: BASOPHILS % 0.7 % (0.0-2.0); EOSINOPHILS % 1.5 % (0.0-5.0); HEMOGLOBIN. 11.7 g/dL (12.0-16.0); LYMPHOCYTES % 20.1 % (20.0-50.0); MEAN CORPUSCULAR HEMOGLOBIN 26.8 pg (28.0-32.0); MEAN CORPUSCULAR VOLUME 80.2 fL (81.0-99.0); MEAN PLATELET VOLUME 9.2 fl (7.4-10.4); MONOCYTES % 9.5 % (2.0-8.0); NEUTROPHILS % 68.2 % (40.0-76.0); PLATELET 181 x1000/uL (130-400); RED BLOOD CELL COUNT 4.37 mill/uL (4.2-5.4); RED CELL DISTRIBUTION WIDTH 14.6 % (11.6-14.6)
[2021-08-23 07:32] LABS: CREATINE KINASE 43 IU/L (26-192); CREATINE KINASE MB FRACTION < 1.0 ng/mL (0.5-3.6)
[2021-08-23] MEDS ORDERED: FAMOTIDINE 20MG TABLET PO SCH (07:40)
[2021-08-23 08:00] VITALS: BP 119/59
[2021-08-23 08:32] LABS: CHLORIDE 112 mEq/L (98-107)
[2021-08-23] MEDS: BUDESONIDE 0.5MG/2ML NEB HHN SCH (08:35)
[2021-08-23] MEDS: FUROSEMIDE 40MG/4ML VIAL IVP SCH (08:43)
[2021-08-23] MEDS: METFORMIN HCL 500MG TABLET PO SCH (08:43)
[2021-08-23] MEDS: CALCIUM CARBONATE/VITAMIN D3 500MG TABLET PO SCH (08:43)
[2021-08-23] MEDS: CARVEDILOL 6.25 MG TABLET PO SCH (08:43)
[2021-08-23] MEDS: AMLODIPINE 10MG TABLET PO SCH (08:43)
[2021-08-23] MEDS: MEGESTROL ACETATE 40MG TABLET PO SCH (08:44)
[2021-08-23] MEDS: LEVOTHYROXINE SODIUM 100MCG TABLET PO SCH (08:44)
[2021-08-23] MEDS: ASPIRIN 81MG EC TABLET PO SCH (08:44)
[2021-08-23 12:00] VITALS: BP 100/50
[2021-08-23] MEDS: LEVOFLOXACIN 500MG TABLET PO SCH (12:00)
[2021-08-23 13:39] VITALS: BP 100/50
== END 2021-08-23 14:40 | disposition home or self-care (01) | DRG 291 ==
LOC: ER 20:45 → MICUSO 08-21 00:26 → ENRESERV 08-21 02:39 → 7WST 08-21 02:52
PROVIDERS: ADMIT Internal Medicine; ATTEND Internal Medicine
DX: I11.0 Hypertensive heart disease with heart failure (principal); J96.01 Acute respiratory failure with hypoxia; I50.33 Acute on chronic diastolic (congestive) heart failure; I48.20 Chronic atrial fibrillation, unspecified; E44.1 Mild protein-calorie malnutrition; J84.9 Interstitial pulmonary disease, unspecified; I42.9 Cardiomyopathy, unspecified; E11.9 Type 2 diabetes mellitus without complications; J45.909 Unspecified asthma, uncomplicated; E03.9 Hypothyroidism, unspecified; D64.9 Anemia, unspecified; J44.9 Chronic obstructive pulmonary disease, unspecified; I27.20 Pulmonary hypertension, unspecified; E78.5 Hyperlipidemia, unspecified; I08.0 Rheumatic disorders of both mitral and aortic valves; Z20.822 Contact with and (suspected) exposure to COVID-19; E87.6 Hypokalemia; Z95.2 Presence of prosthetic heart valve; Z86.16 Personal history of COVID-19; Z87.01 Personal history of pneumonia (recurrent); Z85.3 Personal history of malignant neoplasm of breast; Z90.10 Acquired absence of unspecified breast and nipple; Z88.0 Allergy status to penicillin; Z79.84 Long term (current) use of oral hypoglycemic drugs; Z79.899 Other long term (current) drug therapy; Z68.24 Body mass index [BMI] 24.0-24.9, adult
CPT/HCPCS: 36415; 71045; 80048; 80053; 80061; 81003; 82550; 82553; 82962; 83036; 83605; 83880; 84145; 84439; 84443; 84484; 85025; 85379; 87426; 93005; 94640; 94664; 99285; J1815; J1940; J2270; J7626

== ENCOUNTER 2022-06-16 20:10 | Inpatient (IN) | payer MEDICARE, MEDICAID ==
[~2022-06-16] VITALS: Ht 160 cm; Wt 59.9 kg
[~2022-06-16 20:10] MED LIST changes: +ALBU6.7H3 INH; -ALBU6.7H9 INH; +MEGE40TA33 MT; -MEGE40TA7 MT
[2022-06-16] MEDS ORDERED: ASPIRIN 81MG TABLET PO ONE (21:00)
[2022-06-16] MEDS ORDERED: FUROSEMIDE 40MG/4ML VIAL IV ONE (21:00)
[2022-06-16 21:41] LABS: BASOPHILS % 1.1 % (0.0-2.0); EOSINOPHILS % 4.1 % (0.0-5.0); HEMATOCRIT. 32.1 % (36.0-48.0); HEMOGLOBIN. 10.4 g/dL (12.0-16.0); LYMPHOCYTES % 18.8 % (20.0-50.0); MEAN CORPUSCULAR HEMOGLOBIN 26.2 pg (28.0-32.0); MEAN CORPUSCULAR VOLUME 81.2 fL (81.0-99.0); MEAN PLATELET VOLUME 9.7 fl (7.4-10.4); MONOCYTES % 8.8 % (2.0-8.0); NEUTROPHILS % 67.2 % (40.0-76.0); PLATELET 210 x1000/uL (130-400); RED BLOOD CELL COUNT 3.96 mill/uL (4.2-5.4); RED CELL DISTRIBUTION WIDTH 17.4 % (11.6-14.6)
[2022-06-16 21:50] LABS: INR 1.1; PROTHROMBIN TIME 11.4 sec (9.6-11.0)
[2022-06-16 22:38] LABS: CHLORIDE 112 mEq/L (98-107)
[2022-06-16 22:43] LABS: BG BASE EXCESS -3.9 mmol/L (-2.0-2.0); BG CARBOXYHEMOGLOBIN 0.6 % (0.5-1.5); BG DEOXYHEMOGLOBIN 2.4 % (0.0-5.0); BG FRACTION INSPIRED OXYGEN 28; BG HCO3 ACT 20.5 mmol/L (22.0-26.0); BG METHEMOGLOBIN 0.2 % (0.0-1.5); BG OXYGEN SATURATION 97.6 % (92.0-98.5); BG OXYHEMOGLOBIN 96.8 % (94.0-97.0); BG PCO2 35.2 mmHg (35.0-45.0); BG PH 7.383 (7.350-7.450); BG PO2 108.3 mmHg (75.0-100.0); BG SAMPLE SITE LEFT RADIAL; BG TOTAL HEMOGLOBIN 12.4 g/dL (12.0-18.0); BG VENT MODE NASAL CANNULA
[2022-06-17 08:00] VITALS: BP 122/58
[2022-06-17 08:25] LABS: CLARITY URINE CLEAR (CLEAR); COLOR URINE YELLOW (YELLOW); KETONES URINE NEGATIVE (NEGATIVE); LEUKOCYTE ESTERASE URINE NEGATIVE (NEGATIVE); NITRITE URINE NEGATIVE (NEGATIVE); OCCULT BLOOD URINE NEGATIVE (NEGATIVE); PH URINE 6.5 (4.5-8.0); PROTEIN URINE NEGATIVE (NEGATIVE); SPECIFIC GRAVITY URINE 1.009 (1.005-1.030); UROBILINOGEN URINE 0.2 E.U./dL (0.2-1.0)
[2022-06-17] MEDS ORDERED: CLONIDINE 0.1MG TABLET PO PRN (08:30)
[2022-06-17] MEDS ORDERED: GUAIFENESIN 200MG/10ML SUGAR FREE UDC PO PRN (08:30)
[2022-06-17] MEDS ORDERED: DOCUSATE SODIUM 100MG CAPSULE PO PRN (08:30)
[2022-06-17] MEDS ORDERED: MAGNESIUM/ALUMINUM HYDROXIDE/SIMETHICONE 30ML UDC PO PRN (08:30)
[2022-06-17] MEDS ORDERED: ACETAMINOPHEN 325MG TABLET PO PRN ×2 (08:30)
[2022-06-17] MEDS ORDERED: MORPHINE SULFATE 2 MG/ML CPJ (NOT FOR IM USE) IV PRN (08:30)
[2022-06-17] MEDS ORDERED: DEXTROSE 50% WATER 50ML SYRINGE IV PRN (08:30)
[2022-06-17] MEDS ORDERED: IPRATROPIUM/ALBUTEROL 0.5-3(2.5)MG/3ML NEB HHN PRN (08:30)
[2022-06-17] MEDS ORDERED: ONDANSETRON HCL 4MG/2ML INJ IV PRN (08:30)
[2022-06-17] MEDS: ENOXAPARIN 40MG/0.4ML SYR SUBCUT SCH ×2 (09:30→13:39)
[2022-06-17] MEDS ORDERED: CEFTRIAXONE 1GM PREMIX 50 ML IV SCH (10:00)
[2022-06-17] MEDS ORDERED: NALOXONE HCL 0.4MG/ML VIAL IV PRN (10:00)
[2022-06-17] MEDS ORDERED: AZITHROMYCIN 500 MG in DEXT 5% WATER 250 ML IV SCH (10:00)
[2022-06-17 10:29] LABS: BASOPHILS % 0.9 % (0.0-2.0); EOSINOPHILS % 3.1 % (0.0-5.0); HEMATOCRIT. 30.6 % (36.0-48.0); HEMOGLOBIN. 10.1 g/dL (12.0-16.0); LYMPHOCYTES % 15.9 % (20.0-50.0); MEAN CORPUSCULAR HEMOGLOBIN 26.5 pg (28.0-32.0); MEAN CORPUSCULAR VOLUME 80.3 fL (81.0-99.0); MONOCYTES % 9.3 % (2.0-8.0); NEUTROPHILS % 70.8 % (40.0-76.0); PLATELET 182 x1000/uL (130-400); RED BLOOD CELL COUNT 3.81 mill/uL (4.2-5.4); RED CELL DISTRIBUTION WIDTH 17.2 % (11.6-14.6)
[2022-06-17 11:14] LABS: CHLORIDE 110 mEq/L (98-107)
[2022-06-17 11:26] LABS: CREATINE KINASE 56 IU/L (26-192); CREATINE KINASE MB FRACTION < 1.0 ng/mL (0.5-3.6); PHOSPHORUS 3.2 mg/dL (2.5-4.9)
[2022-06-17 11:54] LABS: FOLIC ACID (FOLATE) SERUM 17.5 ng/mL (>5.38)
[2022-06-17 12:00] VITALS: BP 130/53
[2022-06-17] MEDS ORDERED: IPRATROPIUM/ALBUTEROL 0.5-3(2.5)MG/3ML NEB HHN SCH (12:00)
[2022-06-17] MEDS: INSULIN LISPRO 100 UNITS/ML SUBCUT SCH ×3 (13:10→20:38)
[2022-06-17] MEDS: BLOOD SUGAR DIAGNOSTIC STRIP TEST SCH ×3 (13:38→20:35)
[2022-06-17] MEDS: FUROSEMIDE 40MG/4ML VIAL IV SCH (13:39)
[2022-06-17] MEDS: PANTOPRAZOLE SODIUM 40 MG/VIAL IV SCH ×2 (13:39→17:00)
[2022-06-17] MEDS: AMLODIPINE 5MG TABLET PO SCH ×2 (13:40→20:35)
[2022-06-17] MEDS: ASPIRIN 81MG EC TABLET PO SCH (13:40)
[2022-06-17] MEDS: BUDESONIDE 0.25MG/2ML NEB HHN SCH (15:00)
[2022-06-17 16:00] VITALS: BP 108/59
[2022-06-17 17:19] LABS: CREATINE KINASE 62 IU/L (26-192); CREATINE KINASE MB FRACTION < 1.0 ng/mL (0.5-3.6)
[2022-06-17] MEDS: FERROUS SULFATE 325MG TABLET PO SCH (18:15)
[2022-06-17] MEDS: ASCORBIC ACID 500 MG TABLET PO SCH (18:15)
[2022-06-17] MEDS: CYANOCOBALAMIN 1000MCG/ML VIAL SUBCUT SCH (18:15)
[2022-06-17 20:00] VITALS: BP 104/55
[2022-06-17] MEDS ORDERED: IPRATROPIUM BROMIDE (0.02%) 0.5MG/2.5ML NEB HHN PRN (20:30)
[2022-06-17] MEDS ORDERED: ALBUTEROL (0.083%) 2.5MG/3ML NEB HHN PRN (20:30)
[2022-06-17] MEDS: ATORVASTATIN CALCIUM 40MG TABLET PO SCH (20:35)
[2022-06-17] MEDS: IPRATROPIUM BROMIDE (0.02%) 0.5MG/2.5ML NEB HHN SCH (22:28)
[2022-06-17] MEDS: ALBUTEROL (0.083%) 2.5MG/3ML NEB HHN SCH (22:28)
[2022-06-18] VITALS: BP 102/40
[2022-06-18 01:18] LABS: CREATINE KINASE 69 IU/L (26-192); CREATINE KINASE MB FRACTION < 1.0 ng/mL (0.5-3.6)
[2022-06-18] MEDS: ALBUTEROL (0.083%) 2.5MG/3ML NEB HHN SCH ×4 (02:58→20:51)
[2022-06-18] MEDS: IPRATROPIUM BROMIDE (0.02%) 0.5MG/2.5ML NEB HHN SCH ×4 (02:58→20:51)
[2022-06-18 04:00] VITALS: BP 104/47
[2022-06-18] MEDS: BLOOD SUGAR DIAGNOSTIC STRIP TEST SCH ×4 (05:45→21:06)
[2022-06-18 05:49] LABS: *AMPHETAMINES SCREEN URINE NEGATIVE (NEGATIVE); *BARBITURATES SCREEN URINE NEGATIVE (NEGATIVE); *BENZODIAZEPINES SCREEN URINE NEGATIVE (NEGATIVE); *COCAINE SCREEN URINE NEGATIVE (NEGATIVE); CANNABINOID URINE SCREEN NEGATIVE (NEGATIVE); METHADONE URINE SCREEN NEGATIVE (NEGATIVE); OPIATES URINE SCREEN NEGATIVE (NEGATIVE); PHENCYCLIDINE URINE SCREEN NEGATIVE (NEGATIVE)
[2022-06-18 07:34] LABS: EOSINOPHILS % 3.5 % (0.0-5.0); HEMATOCRIT. 31.1 % (36.0-48.0); HEMOGLOBIN. 10.3 g/dL (12.0-16.0); LYMPHOCYTES % 17.6 % (20.0-50.0); MEAN CORPUSCULAR HEMOGLOBIN 26.5 pg (28.0-32.0); MEAN CORPUSCULAR VOLUME 80.2 fL (81.0-99.0); MEAN PLATELET VOLUME 8.9 fl (7.4-10.4); MONOCYTES % 10.5 % (2.0-8.0); NEUTROPHILS % 67.4 % (40.0-76.0); PLATELET 201 x1000/uL (130-400); RED BLOOD CELL COUNT 3.88 mill/uL (4.2-5.4); RED CELL DISTRIBUTION WIDTH 17.2 % (11.6-14.6)
[2022-06-18 07:48] LABS: GAMMA GLUTAMYL TRANSPEPTIDASE 128 IU/L (7-32)
[2022-06-18 08:00] VITALS: BP 101/42
[2022-06-18] MEDS: INSULIN LISPRO 100 UNITS/ML SUBCUT SCH ×4 (08:10→21:00)
[2022-06-18] MEDS: CYANOCOBALAMIN 1000MCG/ML VIAL SUBCUT SCH (08:11)
[2022-06-18] MEDS: FERROUS SULFATE 325MG TABLET PO SCH ×2 (08:12→17:06)
[2022-06-18] MEDS: AMLODIPINE 5MG TABLET PO SCH ×2 (08:12→21:04)
[2022-06-18] MEDS: FUROSEMIDE 40MG/4ML VIAL IV SCH (08:12)
[2022-06-18] MEDS: ASCORBIC ACID 500 MG TABLET PO SCH ×2 (08:12→17:12)
[2022-06-18] MEDS: ASPIRIN 81MG EC TABLET PO SCH (08:12)
[2022-06-18] MEDS: ENOXAPARIN 40MG/0.4ML SYR SUBCUT SCH (08:12)
[2022-06-18] MEDS: PANTOPRAZOLE SODIUM 40 MG/VIAL IV SCH ×2 (08:12→17:06)
[2022-06-18] MEDS ORDERED: DIATR MEGLU/DIATRIZOATE SOLN 30ML PO SCH (08:15)
[2022-06-18 12:00] VITALS: BP 107/54
[2022-06-18] MEDS: LEVOTHYROXINE SODIUM 100MCG TABLET PO SCH (12:47)
[2022-06-18] MEDS ORDERED: IOHEXOL-350 100 ML BOTTLE ONE (13:43)
[2022-06-18 16:00] VITALS: BP 97/71
[2022-06-18 20:00] VITALS: BP 109/40
[2022-06-18] MEDS: DOXYCYCLINE 100 MG in DEXT 5% WATER 100 ML IV SCH (21:03)
[2022-06-18] MEDS: ATORVASTATIN CALCIUM 40MG TABLET PO SCH (21:03)
[2022-06-19] VITALS: BP 103/53
[2022-06-19] MEDS: IPRATROPIUM BROMIDE (0.02%) 0.5MG/2.5ML NEB HHN SCH ×4 (02:52→21:55)
[2022-06-19] MEDS: ALBUTEROL (0.083%) 2.5MG/3ML NEB HHN SCH ×4 (02:53→21:55)
[2022-06-19 04:00] VITALS: BP 113/41
[2022-06-19 07:29] LABS: BASOPHILS % 1.2 % (0.0-2.0); EOSINOPHILS % 2.8 % (0.0-5.0); HEMOGLOBIN. 10.4 g/dL (12.0-16.0); LYMPHOCYTES % 18.7 % (20.0-50.0); MEAN CORPUSCULAR HEMOGLOBIN 27.9 pg (28.0-32.0); MEAN CORPUSCULAR VOLUME 80.7 fL (81.0-99.0); MEAN PLATELET VOLUME 9.2 fl (7.4-10.4); MONOCYTES % 10.5 % (2.0-8.0); NEUTROPHILS % 66.8 % (40.0-76.0); PLATELET 194 x1000/uL (130-400); RED BLOOD CELL COUNT 3.72 mill/uL (4.2-5.4); RED CELL DISTRIBUTION WIDTH 17.1 % (11.6-14.6)
[2022-06-19] MEDS: BLOOD SUGAR DIAGNOSTIC STRIP TEST SCH ×4 (07:40→21:00)
[2022-06-19 07:41] LABS: CHLORIDE 111 mEq/L (98-107)
[2022-06-19] MEDS: INSULIN LISPRO 100 UNITS/ML SUBCUT SCH ×4 (07:43→22:19)
[2022-06-19 08:00] VITALS: BP 111/41
[2022-06-19] MEDS: DOXYCYCLINE 100 MG in DEXT 5% WATER 100 ML IV SCH ×2 (08:22→21:52)
[2022-06-19] MEDS: ENOXAPARIN 40MG/0.4ML SYR SUBCUT SCH (08:23)
[2022-06-19] MEDS: CYANOCOBALAMIN 1000MCG/ML VIAL SUBCUT SCH (08:23)
[2022-06-19] MEDS: LEVOTHYROXINE SODIUM 100MCG TABLET PO SCH (08:23)
[2022-06-19] MEDS: ASCORBIC ACID 500 MG TABLET PO SCH ×2 (08:23→16:57)
[2022-06-19] MEDS: ASPIRIN 81MG EC TABLET PO SCH (08:23)
[2022-06-19] MEDS: FUROSEMIDE 40MG/4ML VIAL IV SCH (08:23)
[2022-06-19] MEDS: FERROUS SULFATE 325MG TABLET PO SCH ×2 (08:23→16:57)
[2022-06-19] MEDS: PANTOPRAZOLE SODIUM 40 MG/VIAL IV SCH ×2 (08:23→16:57)
[2022-06-19] MEDS: AMLODIPINE 5MG TABLET PO SCH ×2 (08:35→22:15)
[2022-06-19] MEDS: BUDESONIDE 0.25MG/2ML NEB HHN SCH (09:06)
[2022-06-19 12:00] VITALS: BP 104/45
[2022-06-19 16:00] VITALS: BP 102/41
[2022-06-19 20:00] VITALS: BP 113/39
[2022-06-19] MEDS ORDERED: DIGOXIN 500MCG/2ML AMP IV NR (20:00)
[2022-06-19] MEDS: ATORVASTATIN CALCIUM 40MG TABLET PO SCH (22:05)
[2022-06-20] VITALS: BP 108/39
[2022-06-20] MEDS: IPRATROPIUM BROMIDE (0.02%) 0.5MG/2.5ML NEB HHN SCH (02:13)
[2022-06-20] MEDS: ALBUTEROL (0.083%) 2.5MG/3ML NEB HHN SCH (02:14)
[2022-06-20 04:00] VITALS: BP 115/43
[2022-06-20 06:17] LABS: EOSINOPHILS % 2.6 % (0.0-5.0); HEMATOCRIT. 31.9 % (36.0-48.0); HEMOGLOBIN. 10.5 g/dL (12.0-16.0); LYMPHOCYTES % 14.9 % (20.0-50.0); MEAN CORPUSCULAR HEMOGLOBIN 26.5 pg (28.0-32.0); MEAN CORPUSCULAR VOLUME 80.5 fL (81.0-99.0); MONOCYTES % 10.4 % (2.0-8.0); NEUTROPHILS % 71.1 % (40.0-76.0); RED BLOOD CELL COUNT 3.96 mill/uL (4.2-5.4); RED CELL DISTRIBUTION WIDTH 16.9 % (11.6-14.6)
[2022-06-20] MEDS: BLOOD SUGAR DIAGNOSTIC STRIP TEST SCH ×2 (06:55→11:52)
[2022-06-20 08:00] VITALS: BP 110/62
[2022-06-20] MEDS: INSULIN LISPRO 100 UNITS/ML SUBCUT SCH ×2 (08:10→12:38)
[2022-06-20] MEDS: DOXYCYCLINE 100 MG in DEXT 5% WATER 100 ML IV SCH (08:24)
[2022-06-20] MEDS: FERROUS SULFATE 325MG TABLET PO SCH (08:25)
[2022-06-20] MEDS: CYANOCOBALAMIN 1000MCG/ML VIAL SUBCUT SCH (08:25)
[2022-06-20] MEDS: LEVOTHYROXINE SODIUM 100MCG TABLET PO SCH (08:25)
[2022-06-20] MEDS: FUROSEMIDE 40MG/4ML VIAL IV SCH (08:25)
[2022-06-20] MEDS: AMLODIPINE 5MG TABLET PO SCH (08:26)
[2022-06-20] MEDS: ASCORBIC ACID 500 MG TABLET PO SCH (08:26)
[2022-06-20] MEDS: ASPIRIN 81MG EC TABLET PO SCH (08:26)
[2022-06-20] MEDS: ENOXAPARIN 40MG/0.4ML SYR SUBCUT SCH (08:27)
[2022-06-20] MEDS ORDERED: BUDESONIDE 0.5MG/2ML NEB HHN SCH (09:00)
[2022-06-20 09:09] LABS: PLATELET 176 x1000/uL (130-400)
[2022-06-20 09:10] LABS: MEAN PLATELET VOLUME 9.4 fl (7.4-10.4)
[2022-06-20] MEDS: PANTOPRAZOLE SODIUM 40 MG/VIAL IV SCH (11:36)
[2022-06-20 12:00] VITALS: BP 112/59
[2022-06-20 12:12] VITALS: BP 112/59
== END 2022-06-20 16:17 | disposition home or self-care (01) | DRG 391 ==
LOC: ER 20:10 → MICUSO 23:49 → EDBEDREQTM 06-17 00:19 → EDBEDREQ 06-17 00:22 → EDBEDREQSVC 06-17 00:22 → 7WST 06-17 08:51
PROVIDERS: ADMIT Internal Medicine; ATTEND Internal Medicine
DX: K29.70 Gastritis, unspecified, without bleeding (principal); I50.33 Acute on chronic diastolic (congestive) heart failure; J96.01 Acute respiratory failure with hypoxia; J45.901 Unspecified asthma with (acute) exacerbation; I48.20 Chronic atrial fibrillation, unspecified; I31.39 Other pericardial effusion (noninflammatory); I42.9 Cardiomyopathy, unspecified; I11.0 Hypertensive heart disease with heart failure; K57.30 Diverticulosis of large intestine without perforation or abscess without bleeding; K44.9 Diaphragmatic hernia without obstruction or gangrene; Z20.822 Contact with and (suspected) exposure to COVID-19; K80.20 Calculus of gallbladder without cholecystitis without obstruction; K64.8 Other hemorrhoids; M19.90 Unspecified osteoarthritis, unspecified site; I27.21 Secondary pulmonary arterial hypertension; E78.5 Hyperlipidemia, unspecified; D63.8 Anemia in other chronic diseases classified elsewhere; E03.9 Hypothyroidism, unspecified; E11.9 Type 2 diabetes mellitus without complications; I08.1 Rheumatic disorders of both mitral and tricuspid valves; J47.9 Bronchiectasis, uncomplicated; K21.9 Gastro-esophageal reflux disease without esophagitis; Z85.3 Personal history of malignant neoplasm of breast; Z90.11 Acquired absence of right breast and nipple; Z88.0 Allergy status to penicillin; Z95.2 Presence of prosthetic heart valve; Z86.16 Personal history of COVID-19; Z79.4 Long term (current) use of insulin; Z79.899 Other long term (current) drug therapy; Z87.01 Personal history of pneumonia (recurrent); Z91.81 History of falling
CPT/HCPCS: 36415; 36600; 71045; 71275; 74177; 80048; 80053; 80061; 80305; 81003; 82140; 82270; 82375; 82550; 82553; 82607; 82728; 82746; 82805; 82962; 82977; 83036; 83540; 83550; 83735; 83880; 84100; 84443; 84481; 84484; 85025; 85044; 85379; 87426; 93005; 93306; 93970; 94640; 97161; 97166; 99291; C9113; J0456; J0696; J1160; J1650; J1815; J1940; J3420; J3490; J7060; J7626; Q9963; Q9967

== ENCOUNTER 2022-09-07 19:32 | Inpatient (IN) | payer MEDICARE, MEDICAID ==
[~2022-09-07] VITALS: Ht 147.3 cm; Wt 59.5 kg
[2022-09-07 20:01] LABS: CLARITY URINE CLEAR (CLEAR); COLOR URINE DARK YELLOW (YELLOW); KETONES URINE TRACE (NEGATIVE); LEUKOCYTE ESTERASE URINE 1+ (NEGATIVE); NITRITE URINE NEGATIVE (NEGATIVE); OCCULT BLOOD URINE NEGATIVE (NEGATIVE); PROTEIN URINE 1+ (NEGATIVE); SPECIFIC GRAVITY URINE 1.021 (1.005-1.030)
[2022-09-07 20:18] LABS: EOSINOPHILS % 4.3 % (0.0-5.0); HEMATOCRIT. 28.6 % (36.0-48.0); HEMOGLOBIN. 9.4 g/dL (12.0-16.0); LYMPHOCYTES % 16.7 % (20.0-50.0); MEAN CORPUSCULAR HEMOGLOBIN 26.7 pg (28.0-32.0); MEAN CORPUSCULAR VOLUME 81.2 fL (81.0-99.0); MEAN PLATELET VOLUME 8.7 fl (7.4-10.4); MONOCYTES % 11.2 % (2.0-8.0); NEUTROPHILS % 66.8 % (40.0-76.0); PLATELET 168 x1000/uL (130-400); RED BLOOD CELL COUNT 3.52 mill/uL (4.2-5.4); RED CELL DISTRIBUTION WIDTH 17.4 % (11.6-14.6)
[2022-09-07 20:28] LABS: CHLORIDE 109 mEq/L (98-107)
[2022-09-07 20:29] LABS: INR 1.1; PARTIAL THROMBOPLASTIN TIME 28.5 sec (23.4-31.0); PROTHROMBIN TIME 11.9 sec (9.6-11.0)
[2022-09-07] MEDS ORDERED: ASPIRIN 81MG TABLET PO ONE (22:15)
[2022-09-07] MEDS ORDERED: FUROSEMIDE 40MG/4ML VIAL IV ONE (22:15)
[2022-09-07] MEDS ORDERED: LEVOFLOXACIN 750MG PREMIX 150 ML IV ONE (22:45)
[2022-09-08] MEDS ORDERED: DOCUSATE SODIUM 100MG CAPSULE PO PRN (03:45)
[2022-09-08] MEDS ORDERED: CLONIDINE 0.1MG TABLET PO PRN (03:45)
[2022-09-08] MEDS ORDERED: DEXTROSE 50% WATER 50ML SYRINGE IV PRN (03:45)
[2022-09-08] MEDS ORDERED: ONDANSETRON HCL 4MG/2ML INJ IV PRN (03:45)
[2022-09-08] MEDS ORDERED: MAGNESIUM/ALUMINUM HYDROXIDE/SIMETHICONE 30ML UDC PO PRN (03:45)
[2022-09-08] MEDS ORDERED: IPRATROPIUM/ALBUTEROL 0.5-3(2.5)MG/3ML NEB HHN PRN (03:45)
[2022-09-08] MEDS ORDERED: GUAIFENESIN 200MG/10ML SUGAR FREE UDC PO PRN (03:45)
[2022-09-08] MEDS: INSULIN LISPRO 100 UNITS/ML SUBCUT SCH ×4 (07:00→21:49)
[2022-09-08] MEDS: BLOOD SUGAR DIAGNOSTIC STRIP TEST SCH ×4 (07:17→21:00)
[2022-09-08 09:32] LABS: BASOPHILS % 0.9 % (0.0-2.0); EOSINOPHILS % 2.8 % (0.0-5.0); HEMATOCRIT. 30.4 % (36.0-48.0); HEMOGLOBIN. 10.1 g/dL (12.0-16.0); LYMPHOCYTES % 13.6 % (20.0-50.0); MEAN CORPUSCULAR HEMOGLOBIN 26.5 pg (28.0-32.0); MEAN CORPUSCULAR VOLUME 79.8 fL (81.0-99.0); MEAN PLATELET VOLUME 8.8 fl (7.4-10.4); MONOCYTES % 10.4 % (2.0-8.0); NEUTROPHILS % 72.3 % (40.0-76.0); PLATELET 178 x1000/uL (130-400); RED BLOOD CELL COUNT 3.81 mill/uL (4.2-5.4); RED CELL DISTRIBUTION WIDTH 17.3 % (11.6-14.6)
[2022-09-08 09:42] LABS: CHLORIDE 107 mEq/L (98-107)
[2022-09-08 09:56] LABS: TOTAL IRON BINDING CAPACITY 382 ug/dL (250-450)
[2022-09-08 10:06] VITALS: BP 127/41; PULSE 86; RESP 20; TEMP 99
[2022-09-08 10:48] LABS: VITAMIN B12 SERUM 401 pg/mL (211-911)
[2022-09-08 10:49] VITALS: BP 127/41; PULSE 86; RESP 20; TEMP 99
[2022-09-08 10:50] LABS: FOLIC ACID (FOLATE) SERUM > 20.00 ng/mL (>5.38)
[2022-09-08 12:00] VITALS: BP 118/52; PULSE 73; RESP 20; TEMP 98
[2022-09-08] MEDS: GUAIFENESIN 600MG ER TABLET PO SCH ×2 (12:02→20:33)
[2022-09-08] MEDS: FUROSEMIDE 40MG/4ML VIAL IV SCH (12:02)
[2022-09-08 16:00] VITALS: BP 116/50; PULSE 75; RESP 18; TEMP 97.9
[2022-09-08 20:00] VITALS: BP 120/80; PULSE 77; RESP 20; TEMP 98
[2022-09-08] MEDS ORDERED: LEVOFLOXACIN 500MG PREMIX 100 ML IV SCH (20:00)
[2022-09-08] MEDS: FAMOTIDINE 20MG TABLET PO SCH (20:33)
[2022-09-08 21:05] VITALS: PULSE 90; RESP 18
[2022-09-08] MEDS: IPRATROPIUM/ALBUTEROL 0.5-3(2.5)MG/3ML NEB HHN SCH (21:05)
[2022-09-08] MEDS: BUDESONIDE 0.5MG/2ML NEB HHN SCH (21:05)
[2022-09-08] MEDS ORDERED: POTASSIUM CHLORIDE 20MEQ TABLET SR PO NR (21:15)
[2022-09-09] VITALS (10 sets, daily range): BP systolic 98–117; BP diastolic 50–59; PULSE 68–113; RESP 16–22; TEMP 97.2–99; O2SAT 96
[2022-09-09] MEDS: IPRATROPIUM/ALBUTEROL 0.5-3(2.5)MG/3ML NEB HHN SCH ×4 (01:08→20:37)
[2022-09-09] MEDS: BLOOD SUGAR DIAGNOSTIC STRIP TEST SCH ×4 (06:40→21:00)
[2022-09-09] MEDS: INSULIN LISPRO 100 UNITS/ML SUBCUT SCH ×4 (06:40→21:56)
[2022-09-09] MEDS: GUAIFENESIN 600MG ER TABLET PO SCH ×2 (08:16→21:13)
[2022-09-09] MEDS: FUROSEMIDE 40MG/4ML VIAL IV SCH (08:16)
[2022-09-09] MEDS: BUDESONIDE 0.5MG/2ML NEB HHN SCH ×2 (09:28→20:37)
[2022-09-09] MEDS: ENOXAPARIN 60MG/0.6ML SYR SUBCUT SCH (12:35)
[2022-09-09] MEDS ORDERED: METOPROLOL TARTRATE 5MG/5ML VIAL IV PRN (13:30)
[2022-09-09] MEDS: ACETAMINOPHEN 325MG TABLET PO PRN ×2 (18:33→23:22)
[2022-09-09] MEDS ORDERED: LEVOFLOXACIN 750MG PREMIX 150 ML IV SCH (21:00)
[2022-09-09] MEDS: FAMOTIDINE 20MG TABLET PO SCH (21:13)
[2022-09-10] VITALS (7 sets, daily range): BP systolic 110–128; BP diastolic 57–69; PULSE 72–101; RESP 16–20; TEMP 97.9–98.6; O2SAT 95–97
[2022-09-10] MEDS: IPRATROPIUM/ALBUTEROL 0.5-3(2.5)MG/3ML NEB HHN SCH ×2 (00:39→11:25)
[2022-09-10 05:17] LABS: BASOPHILS % 1.3 % (0.0-2.0); EOSINOPHILS % 2.2 % (0.0-5.0); HEMATOCRIT. 29.3 % (36.0-48.0); HEMOGLOBIN. 9.7 g/dL (12.0-16.0); LYMPHOCYTES % 14.9 % (20.0-50.0); MEAN CORPUSCULAR HEMOGLOBIN 26.4 pg (28.0-32.0); MEAN CORPUSCULAR VOLUME 79.6 fL (81.0-99.0); MEAN PLATELET VOLUME 8.8 fl (7.4-10.4); MONOCYTES % 12.5 % (2.0-8.0); NEUTROPHILS % 69.1 % (40.0-76.0); PLATELET 166 x1000/uL (130-400); RED BLOOD CELL COUNT 3.68 mill/uL (4.2-5.4); RED CELL DISTRIBUTION WIDTH 17.2 % (11.6-14.6)
[2022-09-10 05:39] LABS: CHLORIDE 110 mEq/L (98-107)
[2022-09-10] MEDS: BLOOD SUGAR DIAGNOSTIC STRIP TEST SCH ×2 (07:10→12:00)
[2022-09-10] MEDS: INSULIN LISPRO 100 UNITS/ML SUBCUT SCH ×2 (07:22→12:40)
[2022-09-10] MEDS: GUAIFENESIN 600MG ER TABLET PO SCH (10:54)
[2022-09-10] MEDS: FUROSEMIDE 40MG/4ML VIAL IV SCH (10:54)
[2022-09-10] MEDS: ENOXAPARIN 60MG/0.6ML SYR SUBCUT SCH (12:00)
== END 2022-09-10 14:00 | disposition home or self-care (01) | DRG 193 ==
LOC: ER 19:32 → MICUSO 09-08 00:57 → 8WST 09-08 10:05
PROVIDERS: ADMIT Internal Medicine; ATTEND Internal Medicine
DX: J18.9 Pneumonia, unspecified organism (principal); I50.33 Acute on chronic diastolic (congestive) heart failure; J96.01 Acute respiratory failure with hypoxia; J44.0 Chronic obstructive pulmonary disease with (acute) lower respiratory infection; N39.0 Urinary tract infection, site not specified; I11.0 Hypertensive heart disease with heart failure; E11.65 Type 2 diabetes mellitus with hyperglycemia; I48.91 Unspecified atrial fibrillation; D72.821 Monocytosis (symptomatic); D64.9 Anemia, unspecified; E78.5 Hyperlipidemia, unspecified; E03.9 Hypothyroidism, unspecified; I34.0 Nonrheumatic mitral (valve) insufficiency; Z85.3 Personal history of malignant neoplasm of breast; Z87.01 Personal history of pneumonia (recurrent); Z88.0 Allergy status to penicillin; Z90.10 Acquired absence of unspecified breast and nipple; Z95.2 Presence of prosthetic heart valve; Z86.16 Personal history of COVID-19; Z79.899 Other long term (current) drug therapy; Z79.82 Long term (current) use of aspirin; Z79.84 Long term (current) use of oral hypoglycemic drugs
CPT/HCPCS: 36415; 71045; 80048; 80053; 81003; 82607; 82746; 82962; 83036; 83540; 83550; 83880; 84439; 84443; 84484; 85025; 93005; 93306; 93970; 94640; 99285; C1893; J1650; J1815; J1940; J1956; J7626

== ENCOUNTER 2023-08-01 11:47 | Emergency (ER) | payer MEDICARE, MEDICAID ==
[~2023-08-01] VITALS: Ht 160 cm; Wt 59.5 kg
[2023-08-01 11:49] VITALS: O2SAT 97
[2023-08-01] MEDS ORDERED: ALEN70TA79 PO (12:27)
[2023-08-01] MEDS ORDERED: LEVO125T8 PO (12:27)
[2023-08-01] MEDS ORDERED: METF-874 PO (12:27)
[2023-08-01] MEDS ORDERED: NAPR1TAB38 PO (12:28)
[2023-08-01] MEDS: IOHEXOL-350 100 ML BOTTLE ONE ×2 (12:30→13:56)
[2023-08-01] MEDS: ASPIRIN 300MG SUPP PR ONE (12:45)
[2023-08-01 12:46] LABS: CHLORIDE 106 mEq/L (98-107); POTASSIUM 3.4 mEq/L (3.5-5.1); SODIUM 136 mEq/L (136-145)
[2023-08-01 12:47] LABS: CALCIUM 9.7 mg/dL (8.7-10.4); CARBON DIOXIDE 23 mEq/L (21-32)
[2023-08-01 12:49] LABS: BASOPHILS % 0.8 % (0.0-2.0); DIFFERENTIAL COMMENT 0; EOSINOPHILS % 1.7 % (0.0-5.0); HEMOGLOBIN. 11.6 g/dL (12.0-16.0); LYMPHOCYTES % 11.7 % (20.0-50.0); MEAN CORPUSCULAR HGB CONC 32.2 g/dL (31.0-37.0); MEAN CORPUSCULAR VOLUME 77.6 fL (81.0-99.0); MEAN PLATELET VOLUME 9.3 fl (7.4-10.4); MONOCYTES % 5.7 % (2.0-8.0); NEUTROPHILS % 80.1 % (40.0-76.0); PLATELET 183 x1000/uL (130-400); RED BLOOD CELL COUNT 4.64 mill/uL (4.2-5.4); RED CELL DISTRIBUTION WIDTH 16.2 % (11.6-14.6); WHITE BLOOD COUNT 11.9 x1000/uL (4.5-11.0)
[2023-08-01 12:52] LABS: CREATININE 0.8 mg/dL (0.6-1.0); GLUCOSE 177 mg/dL (70-105); TROPONIN I HIGH SENSITIVITY 13 ng/L (3.0-34); UREA NITROGEN BLOOD 15 mg/dL (9-23)
[2023-08-01 12:53] LABS: ETHANOL BLOOD < 10 mg/dL (<10)
[2023-08-01 12:57] LABS: INR 1.1; PROTHROMBIN TIME 11.7 sec (9.6-11.0)
[2023-08-01] MEDS: NOREPINEPHRINE 8MG/250ML PMX 250 ML IV ONE (13:00)
[2023-08-01 15:59] VITALS: BP 114/51; PULSE 86; RESP 15; TEMP 98.5
== END 2023-08-01 16:16 | disposition short-term general hospital (02) ==
LOC: ER 11:54 → CANBEDREQ 19:38
DX: I66.3 Occlusion and stenosis of cerebellar arteries (principal); J45.909 Unspecified asthma, uncomplicated; E11.9 Type 2 diabetes mellitus without complications; I10 Essential (primary) hypertension; Z85.3 Personal history of malignant neoplasm of breast; Z88.0 Allergy status to penicillin
CPT/HCPCS: 80048; 80320; 83690; 85025; 85610; 84484; 36415; 71045; 70496; 70498; 70450; 93005; 99285; Q9967; G0480

== ENCOUNTER 2023-10-27 11:26 | Inpatient (IN) | payer MEDICARE, MEDICAID ==
[~2023-10-27] VITALS: Ht 157.5 cm; Wt 62.6 kg
[~2023-10-27 11:26] MED LIST changes: +ALEN70TA79 PO; -ATOR40TA70 PO; -DEXL30CA3 PO; -IBUP-2028 MT; -LEVO100T9 PO; +LEVO125T8 PO; -LOPE2CAP MT; -LORA10TA7 MT; -METF-416 PO; +METF-874 PO; -METO25TA6 PO; +NAPR1TAB38 PO
[2023-10-27 11:59] LABS: BASOPHILS % 0.8 % (0.0-2.0); DIFFERENTIAL COMMENT 0; EOSINOPHILS % 1.4 % (0.0-5.0); HEMATOCRIT. 34.2 % (36.0-48.0); HEMOGLOBIN. 10.9 g/dL (12.0-16.0); LYMPHOCYTES % 10.4 % (20.0-50.0); MEAN CORPUSCULAR HEMOGLOBIN 25.1 pg (28.0-32.0); MEAN CORPUSCULAR VOLUME 78.5 fL (81.0-99.0); MONOCYTES % 6.2 % (2.0-8.0); NEUTROPHILS % 81.2 % (40.0-76.0); PLATELET 161 x1000/uL (130-400); RED BLOOD CELL COUNT 4.36 mill/uL (4.2-5.4); RED CELL DISTRIBUTION WIDTH 17.6 % (11.6-14.6); WHITE BLOOD COUNT 16.7 x1000/uL (4.5-11.0)
[2023-10-27 12:07] LABS: CHLORIDE 105 mEq/L (98-107); POTASSIUM 3.5 mEq/L (3.5-5.1); SODIUM 136 mEq/L (136-145)
[2023-10-27 12:08] LABS: CALCIUM 9.6 mg/dL (8.7-10.4); CARBON DIOXIDE 21 mEq/L (21-32)
[2023-10-27 12:13] LABS: CREATININE 0.8 mg/dL (0.6-1.0); GLUCOSE 206 mg/dL (70-105); UREA NITROGEN BLOOD 14 mg/dL (9-23)
[2023-10-27 12:28] LABS: TROPONIN I HIGH SENSITIVITY 12 ng/L (3.0-34)
[2023-10-27 12:29] LABS: ALANINE AMINOTRANSFERASE 18 IU/L (10-49); ALBUMIN 4.3 g/dL (3.2-4.8); ASPARTATE AMINOTRANSFERASE 22 IU/L (<34); BILIRUBIN DIRECT 0.3 mg/dL (<=3.0); BILIRUBIN TOTAL 0.6 mg/dL (0.1-1.0)
[2023-10-27 12:30] LABS: PROTEIN TOTAL 6.9 g/dL (6.0-8.3); PROTHROMBIN TIME 11.4 sec (9.6-11.0)
[2023-10-27] MEDS ORDERED: SODIUM CHLORIDE 0.9% 1000ML BAG (SEPSIS BOLUS) IV ONE (14:45)
[2023-10-27] MEDS: SODIUM CHLORIDE 0.9% 2,250 ML IV SCH (15:05)
[2023-10-27 16:04] LABS: PROTHROMBIN TIME 11.4 sec (9.6-11.0)
[2023-10-27] MEDS: CEFTRIAXONE 1GM/50ML 50 ML IV NR (16:44)
[2023-10-27] MEDS: IOHEXOL-300 100 ML BOTTLE ONE (16:47)
[2023-10-27 16:54] LABS: CLARITY URINE CLEAR (CLEAR); COLOR URINE YELLOW (YELLOW); GLUCOSE URINE NEGATIVE (NEGATIVE); KETONES URINE NEGATIVE (NEGATIVE); LEUKOCYTE ESTERASE URINE NEGATIVE (NEGATIVE); NITRITE URINE NEGATIVE (NEGATIVE); OCCULT BLOOD URINE NEGATIVE (NEGATIVE); PROTEIN URINE NEGATIVE (NEGATIVE); SPECIFIC GRAVITY URINE 1.025 (1.005-1.030); UROBILINOGEN URINE 0.2 E.U./dL (0.2-1.0)
[2023-10-27] MEDS ORDERED: AZITHROMYCIN 500MG/250ML 250 ML IV NR (17:15)
[2023-10-27] MEDS: VANCOMYCIN 1G PREMIX 200 ML IV NR (18:14)
[2023-10-27 22:55] VITALS: BP 103/50; PULSE 117; RESP 20; TEMP 97.3
[2023-10-28] VITALS (7 sets, daily range): BP systolic 97–128; BP diastolic 52–65; PULSE 78–94; RESP 18–20; TEMP 97.5–98.4
[2023-10-28] MEDS: IOHEXOL-350 100 ML BOTTLE ONE (00:17)
[2023-10-28] MEDS ORDERED: CLONIDINE 0.1MG TABLET PO PRN (03:00)
[2023-10-28] MEDS ORDERED: ONDANSETRON HCL 4MG/2ML INJ IV PRN (03:00)
[2023-10-28] MEDS ORDERED: ACETAMINOPHEN 325MG TABLET PO PRN ×2 (03:00)
[2023-10-28] MEDS ORDERED: MAGNESIUM/ALUMINUM HYDROXIDE/SIMETHICONE 30ML UDC PO PRN (03:00)
[2023-10-28] MEDS ORDERED: IPRATROPIUM/ALBUTEROL 0.5-3(2.5)MG/3ML NEB HHN PRN (03:00)
[2023-10-28] MEDS ORDERED: DEXTROSE 50% WATER 50ML SYRINGE IV PRN (03:00)
[2023-10-28] MEDS: SODIUM CHLORIDE 0.9% 1,000 ML IV SCH (03:50)
[2023-10-28] MEDS: AZITHROMYCIN 500MG/250ML 250 ML IV SCH (05:58)
[2023-10-28] MEDS: BLOOD SUGAR DIAGNOSTIC STRIP TEST SCH (06:28)
[2023-10-28] MEDS ORDERED: ATOR40TA70 PO (07:55)
[2023-10-28] MEDS ORDERED: INSULIN LISPRO 100 UNITS/ML SUBCUT SCH (08:10)
[2023-10-28] MEDS: MEGESTROL ACETATE 40MG TABLET PO SCH (08:47)
[2023-10-28] MEDS: ASPIRIN 81MG EC TABLET PO SCH (08:48)
[2023-10-28] MEDS: LEVOTHYROXINE SODIUM 125MCG TABLET PO SCH (08:48)
[2023-10-28] MEDS: CALCIUM CARBONATE/VITAMIN D3 500MG TABLET PO SCH (08:48)
[2023-10-28] MEDS: CARVEDILOL 6.25 MG TABLET PO SCH (08:49)
[2023-10-28] MEDS: AMLODIPINE 10MG TABLET PO SCH (08:49)
[2023-10-28] MEDS: ENOXAPARIN 40MG/0.4ML SYR SUBCUT SCH (08:49)
[2023-10-28] MEDS: FAMOTIDINE 20MG/2ML VIAL IV SCH (08:55)
[2023-10-28] MEDS: INSULIN LISPRO 100 UNITS/ML SUBCUT SCH (08:57)
[2023-10-28 10:27] LABS: *AMPHETAMINES SCREEN URINE NEGATIVE (NEGATIVE)
[2023-10-28 10:28] LABS: *BARBITURATES SCREEN URINE NEGATIVE (NEGATIVE); *BENZODIAZEPINES SCREEN URINE NEGATIVE (NEGATIVE); *COCAINE SCREEN URINE NEGATIVE (NEGATIVE); CANNABINOID URINE SCREEN NEGATIVE (NEGATIVE); ECSTASY MDMA SCREEN URINE NEGATIVE (NEGATIVE); METHADONE URINE SCREEN NEGATIVE (NEGATIVE); OPIATES URINE SCREEN NEGATIVE (NEGATIVE); PHENCYCLIDINE URINE SCREEN NEGATIVE (NEGATIVE)
[2023-10-28 11:49] LABS: TROPONIN I HIGH SENSITIVITY 9 ng/L (3.0-34)
[2023-10-28 11:50] LABS: CREATINE KINASE 57 IU/L (34-145)
[2023-10-28 13:13] LABS: DIFFERENTIAL COMMENT 0; EOSINOPHILS % 3.9 % (0.0-5.0); HEMATOCRIT. 32.5 % (36.0-48.0); HEMOGLOBIN. 10.2 g/dL (12.0-16.0); LYMPHOCYTES % 15.2 % (20.0-50.0); MEAN CORPUSCULAR HEMOGLOBIN 24.6 pg (28.0-32.0); MEAN CORPUSCULAR HGB CONC 31.3 g/dL (31.0-37.0); MEAN CORPUSCULAR VOLUME 78.7 fL (81.0-99.0); MEAN PLATELET VOLUME 9.4 fl (7.4-10.4); MONOCYTES % 9.2 % (2.0-8.0); NEUTROPHILS % 70.7 % (40.0-76.0); PLATELET 166 x1000/uL (130-400); RED BLOOD CELL COUNT 4.13 mill/uL (4.2-5.4); RED CELL DISTRIBUTION WIDTH 17.8 % (11.6-14.6); WHITE BLOOD COUNT 11.9 x1000/uL (4.5-11.0)
[2023-10-28 13:42] LABS: CHLORIDE 111 mEq/L (98-107); POTASSIUM 3.2 mEq/L (3.5-5.1); SODIUM 141 mEq/L (136-145)
[2023-10-28 13:43] LABS: CALCIUM 8.8 mg/dL (8.7-10.4); CARBON DIOXIDE 22 mEq/L (21-32)
[2023-10-28 13:48] LABS: CREATININE 0.6 mg/dL (0.6-1.0); GLUCOSE 93 mg/dL (70-105); IRON 27 ug/dL (50-170); UREA NITROGEN BLOOD 8 mg/dL (9-23)
[2023-10-28 13:50] LABS: TOTAL IRON BINDING CAPACITY 335 ug/dl (250-425)
[2023-10-28 13:53] LABS: T4 FREE 2.04 ng/dL (0.89-1.76); THYROID STIMULATING HORMONE < 0.10 uIU/mL (0.55-4.78)
[2023-10-28] MEDS: CEFTRIAXONE 1GM/50ML 50 ML IV SCH (15:49)
[2023-10-28] MEDS: POTASSIUM CHLORIDE 20MEQ TABLET SR PO NR (15:49)
[2023-10-28] MEDS: ATORVASTATIN CALCIUM 40MG TABLET PO SCH (21:04)
[2023-10-28 22:07] LABS: TROPONIN I HIGH SENSITIVITY 9 ng/L (3.0-34)
[2023-10-28 22:08] LABS: CREATINE KINASE 45 IU/L (34-145)
[2023-10-29 00:19] VITALS: BP 119/57; PULSE 93; RESP 16; TEMP 98
[2023-10-29 04:00] VITALS: BP 124/59; PULSE 81; RESP 16; TEMP 97.8
[2023-10-29 06:53] LABS: CARBON DIOXIDE 21 mEq/L (21-32); CHLORIDE 111 mEq/L (98-107); POTASSIUM 3.2 mEq/L (3.5-5.1); SODIUM 142 mEq/L (136-145)
[2023-10-29 06:54] LABS: CALCIUM 9.1 mg/dL (8.7-10.4)
[2023-10-29 06:58] LABS: CREATININE 0.5 mg/dL (0.6-1.0)
[2023-10-29 06:59] LABS: BASOPHILS % 1.3 % (0.0-2.0); DIFFERENTIAL COMMENT 0; EOSINOPHILS % 5.3 % (0.0-5.0); GLUCOSE 101 mg/dL (70-105); HEMATOCRIT. 29.9 % (36.0-48.0); HEMOGLOBIN. 9.8 g/dL (12.0-16.0); LYMPHOCYTES % 25.3 % (20.0-50.0); MEAN CORPUSCULAR HEMOGLOBIN 25.3 pg (28.0-32.0); MEAN CORPUSCULAR HGB CONC 32.7 g/dL (31.0-37.0); MEAN CORPUSCULAR VOLUME 77.4 fL (81.0-99.0); MEAN PLATELET VOLUME 9.4 fl (7.4-10.4); MONOCYTES % 11.6 % (2.0-8.0); NEUTROPHILS % 56.5 % (40.0-76.0); PLATELET 177 x1000/uL (130-400); RED BLOOD CELL COUNT 3.86 mill/uL (4.2-5.4); RED CELL DISTRIBUTION WIDTH 17.1 % (11.6-14.6); UREA NITROGEN BLOOD 7 mg/dL (9-23)
[2023-10-29] MEDS: POTASSIUM CHLORIDE 20MEQ TABLET SR PO NR (09:59)
[2023-10-29] MEDS ORDERED: ONDA4TAB50 PO (10:03)
[2023-10-29] MEDS ORDERED: LEVO-65 PO (10:03)
[2023-10-29 13:44] VITALS: BP 108/60; PULSE 84; TEMP 98; O2SAT 98
[2023-10-30] MEDS ORDERED: AZITHROMYCIN 500 MG TABLET PO SCH (06:00)
== END 2023-10-29 17:32 | disposition home or self-care (01) | DRG 871 ==
LOC: ER 11:38 → EDBEDREQ 14:49 → EDBEDREQTM 16:06 → EDBEDREQSVC 16:06 → 5WST 20:35 → MICUSO 22:25 → 7WST 22:42
PROVIDERS: ADMIT Internal Medicine; ATTEND Internal Medicine
DX: A41.9 Sepsis, unspecified organism (principal); J69.0 Pneumonitis due to inhalation of food and vomit; I48.19 Other persistent atrial fibrillation; K57.30 Diverticulosis of large intestine without perforation or abscess without bleeding; E03.9 Hypothyroidism, unspecified; E11.65 Type 2 diabetes mellitus with hyperglycemia; K80.20 Calculus of gallbladder without cholecystitis without obstruction; D50.9 Iron deficiency anemia, unspecified; J45.909 Unspecified asthma, uncomplicated; I10 Essential (primary) hypertension; E78.5 Hyperlipidemia, unspecified; E87.6 Hypokalemia; Z79.82 Long term (current) use of aspirin; Z79.899 Other long term (current) drug therapy; Z88.0 Allergy status to penicillin; Z90.11 Acquired absence of right breast and nipple; Z95.3 Presence of xenogenic heart valve
CPT/HCPCS: 36415; 71045; 74177; 80048; 80076; 80305; 81003; 82550; 82728; 82962; 83540; 83550; 83605; 83880; 84145; 84439; 84443; 84484; 85025; 93005; 99291; J0456; J0696; J1650; J1815; J3370; J3490; J7030; Q9967

== ENCOUNTER 2024-01-26 19:05 | Inpatient (IN) | payer MEDICARE, MEDICAID ==
[~2024-01-26] VITALS: Ht 147.3 cm; Wt 55.6 kg
[~2024-01-26 19:05] MED LIST changes: +ATOR40TA70 PO; +ONDA4TAB50 PO
[2024-01-26] MEDS ORDERED: SODIUM CHLORIDE 0.9% 1,000 ML IV ONE (19:30)
[2024-01-26 20:41] LABS: CHLORIDE 102 mEq/L (98-107); POTASSIUM 4.1 mEq/L (3.5-5.1); SODIUM 135 mEq/L (136-145)
[2024-01-26 20:42] LABS: CALCIUM 10.4 mg/dL (8.7-10.4); CARBON DIOXIDE 24 mEq/L (21-32)
[2024-01-26 20:47] LABS: GLUCOSE 134 mg/dL (70-105); UREA NITROGEN BLOOD 16 mg/dL (9-23)
[2024-01-26 20:48] LABS: BASOPHILS % 0.8 % (0.0-2.0); DIFFERENTIAL COMMENT 0; EOSINOPHILS % 1.6 % (0.0-5.0); HEMATOCRIT. 31.8 % (36.0-48.0); HEMOGLOBIN. 9.8 g/dL (12.0-16.0); LYMPHOCYTES % 13.9 % (20.0-50.0); MEAN CORPUSCULAR HEMOGLOBIN 23.5 pg (28.0-32.0); MEAN CORPUSCULAR HGB CONC 30.8 g/dL (31.0-37.0); MEAN CORPUSCULAR VOLUME 76.2 fL (81.0-99.0); MEAN PLATELET VOLUME 8.7 fl (7.4-10.4); MONOCYTES % 10.2 % (2.0-8.0); NEUTROPHILS % 73.5 % (40.0-76.0); PLATELET 176 x1000/uL (130-400); RED BLOOD CELL COUNT 4.17 mill/uL (4.2-5.4); RED CELL DISTRIBUTION WIDTH 16.8 % (11.6-14.6); WHITE BLOOD COUNT 11.5 x1000/uL (4.5-11.0)
[2024-01-26 20:49] LABS: ALANINE AMINOTRANSFERASE 32 IU/L (10-49); ALBUMIN 4.1 g/dL (3.2-4.8); ASPARTATE AMINOTRANSFERASE 58 IU/L (<34); BILIRUBIN DIRECT 0.6 mg/dL (<=3.0); DIGOXIN 2.4 ng/mL (0.8-2.0)
[2024-01-26 20:50] LABS: BILIRUBIN TOTAL 1.3 mg/dL (0.1-1.0); PROTEIN TOTAL 6.9 g/dL (6.0-8.3)
[2024-01-26 21:04] LABS: ETHANOL BLOOD < 10 mg/dL (<10); TROPONIN I HIGH SENSITIVITY 98 ng/L (3.0-34)
[2024-01-26] MEDS: LEVOFLOXACIN 750MG PREMIX 150 ML IV NR (23:28)
[2024-01-27 01:41] LABS: TROPONIN I HIGH SENSITIVITY 90 ng/L (3.0-34)
[2024-01-27] MEDS ORDERED: ONDANSETRON HCL 4MG/2ML INJ IV PRN (06:15)
[2024-01-27] MEDS ORDERED: GUAIFENESIN 200MG/10ML SUGAR FREE UDC PO PRN (06:15)
[2024-01-27] MEDS ORDERED: DOCUSATE SODIUM 100MG CAPSULE PO PRN (06:15)
[2024-01-27] MEDS ORDERED: CLONIDINE 0.1MG TABLET PO PRN (06:15)
[2024-01-27] MEDS ORDERED: IPRATROPIUM/ALBUTEROL 0.5-3(2.5)MG/3ML NEB HHN PRN (06:15)
[2024-01-27] MEDS ORDERED: ACETAMINOPHEN 325MG TABLET PO PRN (06:15)
[2024-01-27] MEDS ORDERED: DEXTROSE 50% WATER 50ML SYRINGE IV PRN (06:45)
[2024-01-27] MEDS: INSULIN LISPRO 100 UNITS/ML SUBCUT SCH (07:30)
[2024-01-27] MEDS: BLOOD SUGAR DIAGNOSTIC STRIP TEST SCH (07:30)
[2024-01-27] MEDS: CEFTRIAXONE 1GM/50ML 50 ML IV SCH (09:20)
[2024-01-27] MEDS: ASPIRIN 81MG EC TABLET PO SCH (09:54)
[2024-01-27] MEDS: AZITHROMYCIN 500MG/250ML 250 ML IV SCH (09:55)
[2024-01-27] MEDS: FUROSEMIDE 40MG/4ML VIAL IVP NR (10:11)
[2024-01-27] MEDS: CLOPIDOGREL 75MG TABLET PO SCH (10:44)
[2024-01-27] MEDS: AMLODIPINE 10MG TABLET PO SCH (10:44)
[2024-01-27] MEDS: ATORVASTATIN CALCIUM 40MG TABLET PO SCH (10:44)
[2024-01-27] MEDS: SODIUM CHLORIDE 0.9% 500 ML IV ONE (10:49)
[2024-01-27] MEDS: LEVOTHYROXINE SODIUM 125MCG TABLET PO SCH (11:54)
[2024-01-27 12:00] LABS: CHLORIDE 100 mEq/L (98-107); POTASSIUM 3.6 mEq/L (3.5-5.1); SODIUM 133 mEq/L (136-145)
[2024-01-27 12:01] LABS: CARBON DIOXIDE 23 mEq/L (21-32); INR 1.3; PARTIAL THROMBOPLASTIN TIME 28.2 sec (23.4-31.0); PROTHROMBIN TIME 14.6 sec (9.6-11.0)
[2024-01-27 12:05] LABS: IRON 26 ug/dL (50-170)
[2024-01-27 12:06] LABS: GLUCOSE 152 mg/dL (70-105); TRIGLYCERIDE 82 mg/dL (0-150); UREA NITROGEN BLOOD 17 mg/dL (9-23)
[2024-01-27 12:07] LABS: LDL CHOLESTEROL 19 mg/dL (5-100)
[2024-01-27 12:08] LABS: HDL CHOLESTEROL < 20 mg/dL (>65); TOTAL IRON BINDING CAPACITY 233 ug/dl (250-425)
[2024-01-27 12:10] LABS: BASOPHILS % 0.6 % (0.0-2.0); CHOLESTEROL 45 mg/dL (<200); DIFFERENTIAL COMMENT 0; EOSINOPHILS % 0.8 % (0.0-5.0); HEMATOCRIT. 30.9 % (36.0-48.0); HEMOGLOBIN. 9.8 g/dL (12.0-16.0); LYMPHOCYTES % 13.4 % (20.0-50.0); MEAN CORPUSCULAR HEMOGLOBIN 25.1 pg (28.0-32.0); MEAN CORPUSCULAR HGB CONC 31.6 g/dL (31.0-37.0); MEAN CORPUSCULAR VOLUME 79.6 fL (81.0-99.0); MEAN PLATELET VOLUME 8.8 fl (7.4-10.4); MONOCYTES % 8.4 % (2.0-8.0); NEUTROPHILS % 76.8 % (40.0-76.0); PLATELET 144 x1000/uL (130-400); RED BLOOD CELL COUNT 3.88 mill/uL (4.2-5.4); RED CELL DISTRIBUTION WIDTH 17.7 % (11.6-14.6); WHITE BLOOD COUNT 8.5 x1000/uL (4.5-11.0)
[2024-01-27] MEDS: IPRATROPIUM/ALBUTEROL 0.5-3(2.5)MG/3ML NEB HHN SCH (12:37)
[2024-01-27 13:07] VITALS: PULSE 60; RESP 16; O2SAT 98
[2024-01-27] MEDS: DIGOXIN 125MCG TABLET PO SCH (18:01)
[2024-01-27 21:13] LABS: CREATINE KINASE MB FRACTION 2.4 ng/mL (0.5-3.6)
[2024-01-27 22:00] VITALS: BP 119/39; PULSE 61; RESP 18; TEMP 37.28076; TEMP 37.3076; O2SAT 96
[2024-01-28] VITALS: BP 116/65; PULSE 77; RESP 20; TEMP 36.44736; O2SAT 96
[2024-01-28 04:00] VITALS: BP 110/38; PULSE 64; RESP 18; TEMP 36.05844; O2SAT 97
[2024-01-28 08:00] VITALS: BP 110/49; PULSE 80; RESP 19; TEMP 36.3918; O2SAT 95
[2024-01-28] MEDS: AZITHROMYCIN 500 MG TABLET PO SCH (09:17)
[2024-01-28 11:00] LABS: BASOPHILS % 0.5 % (0.0-2.0); DIFFERENTIAL COMMENT 0; EOSINOPHILS % 1.2 % (0.0-5.0); HEMATOCRIT. 28.7 % (36.0-48.0); LYMPHOCYTES % 14.3 % (20.0-50.0); MEAN CORPUSCULAR HEMOGLOBIN 23.9 pg (28.0-32.0); MEAN CORPUSCULAR HGB CONC 31.3 g/dL (31.0-37.0); MEAN PLATELET VOLUME 8.6 fl (7.4-10.4); MONOCYTES % 11.1 % (2.0-8.0); NEUTROPHILS % 72.9 % (40.0-76.0); PLATELET 166 x1000/uL (130-400); RED BLOOD CELL COUNT 3.77 mill/uL (4.2-5.4); WHITE BLOOD COUNT 10.4 x1000/uL (4.5-11.0)
[2024-01-28 11:05] LABS: MEAN CORPUSCULAR VOLUME 76.2 fL (81.0-99.0)
[2024-01-28 11:06] LABS: POTASSIUM 3.3 mEq/L (3.5-5.1)
[2024-01-28 11:08] LABS: CALCIUM 9.6 mg/dL (8.7-10.4)
[2024-01-28 11:12] LABS: CREATININE 0.9 mg/dL (0.6-1.0)
[2024-01-28 11:13] LABS: CREATINE KINASE MB FRACTION 2.5 ng/mL (0.5-3.6)
[2024-01-28 11:17] LABS: T4 FREE 2.14 ng/dL (0.89-1.76)
[2024-01-28 12:00] VITALS: BP 115/47; PULSE 63; RESP 18; TEMP 36.28068; O2SAT 97
[2024-01-28] MEDS: SODIUM CHLORIDE 0.9% 250 ML IV ONE (12:39)
[2024-01-28] MEDS: KCL 20MEQ/100ML PREMIX 100 ML IV SCH (14:44)
[2024-01-28 16:00] VITALS: BP 117/46; PULSE 78; RESP 20; TEMP 36.33624; O2SAT 92
[2024-01-28] MEDS: POTASSIUM CHLORIDE 20MEQ TABLET SR PO NR (17:37)
[2024-01-28 20:00] VITALS: BP 127/48; PULSE 70; RESP 19; TEMP 36.72516; O2SAT 96
[2024-01-29] VITALS (8 sets, daily range): BP systolic 108–130; BP diastolic 43–63; PULSE 60–77; RESP 17–22; TEMP 35.78064–36.72516; O2SAT 93–99
[2024-01-29] MEDS: ACETAMINOPHEN 325MG TABLET PO PRN (04:34)
[2024-01-29 07:30] LABS: BASOPHILS % 0.6 % (0.0-2.0); DIFFERENTIAL COMMENT 0; EOSINOPHILS % 0.8 % (0.0-5.0); HEMATOCRIT. 27.1 % (36.0-48.0); HEMOGLOBIN. 8.7 g/dL (12.0-16.0); LYMPHOCYTES % 16.4 % (20.0-50.0); MEAN CORPUSCULAR HEMOGLOBIN 24.2 pg (28.0-32.0); MEAN CORPUSCULAR VOLUME 75.7 fL (81.0-99.0); MEAN PLATELET VOLUME 8.8 fl (7.4-10.4); MONOCYTES % 12.1 % (2.0-8.0); NEUTROPHILS % 70.1 % (40.0-76.0); PLATELET 175 x1000/uL (130-400); RED BLOOD CELL COUNT 3.57 mill/uL (4.2-5.4); RED CELL DISTRIBUTION WIDTH 17.2 % (11.6-14.6); WHITE BLOOD COUNT 11.5 x1000/uL (4.5-11.0)
[2024-01-29 07:36] LABS: CALCIUM 9.5 mg/dL (8.7-10.4)
[2024-01-29 07:42] LABS: CREATININE 0.9 mg/dL (0.6-1.0)
[2024-01-29] MEDS ORDERED: LIDOCAINE HCL 1% 10 MG/ML 10ML VIAL ONE (09:03)
[2024-01-30] VITALS (10 sets, daily range): BP systolic 103–121; BP diastolic 37–55; PULSE 60–114; RESP 18–21; TEMP 36.16956–36.72516; O2SAT 90–100
[2024-01-30 06:47] LABS: BASOPHILS % 0.6 % (0.0-2.0); DIFFERENTIAL COMMENT 0; EOSINOPHILS % 1.7 % (0.0-5.0); HEMATOCRIT. 24.3 % (36.0-48.0); HEMOGLOBIN. 7.8 g/dL (12.0-16.0); MEAN CORPUSCULAR HEMOGLOBIN 24.1 pg (28.0-32.0); MEAN CORPUSCULAR HGB CONC 32.1 g/dL (31.0-37.0); MEAN CORPUSCULAR VOLUME 75.2 fL (81.0-99.0); MEAN PLATELET VOLUME 8.6 fl (7.4-10.4); MONOCYTES % 10.7 % (2.0-8.0); PLATELET 152 x1000/uL (130-400); RED BLOOD CELL COUNT 3.23 mill/uL (4.2-5.4); RED CELL DISTRIBUTION WIDTH 17.8 % (11.6-14.6); WHITE BLOOD COUNT 10.4 x1000/uL (4.5-11.0)
[2024-01-30 06:50] LABS: CHLORIDE 106 mEq/L (98-107); POTASSIUM 3.7 mEq/L (3.5-5.1); SODIUM 139 mEq/L (136-145)
[2024-01-30 06:51] LABS: CARBON DIOXIDE 27 mEq/L (21-32)
[2024-01-30 06:52] LABS: CALCIUM 9.1 mg/dL (8.7-10.4)
[2024-01-30 06:56] LABS: CREATININE 0.8 mg/dL (0.6-1.0); GLUCOSE 137 mg/dL (70-105); UREA NITROGEN BLOOD 18 mg/dL (9-23)
[2024-01-30 06:59] LABS: PHOSPHORUS 2.9 mg/dL (2.5-4.9)
[2024-01-30] MEDS: MULTIVITAMINS,THER W-MINERALS TABLET PO SCH (08:51)
[2024-01-30] MEDS: MAGNESIUM 4 G PREMIX 100 ML IV NR (14:20)
[2024-01-31] VITALS (9 sets, daily range): BP systolic 125–140; BP diastolic 52–64; PULSE 69–90; RESP 16–22; TEMP 36.3918–37.16964; O2SAT 89–100
[2024-01-31 08:13] LABS: CHLORIDE 106 mEq/L (98-107); POTASSIUM 3.7 mEq/L (3.5-5.1); SODIUM 140 mEq/L (136-145)
[2024-01-31 08:14] LABS: CALCIUM 9.7 mg/dL (8.7-10.4); CARBON DIOXIDE 27 mEq/L (21-32)
[2024-01-31 08:19] LABS: CREATININE 0.8 mg/dL (0.6-1.0); GLUCOSE 155 mg/dL (70-105)
[2024-01-31 08:20] LABS: UREA NITROGEN BLOOD 19 mg/dL (9-23)
[2024-01-31 08:22] LABS: PHOSPHORUS 3.1 mg/dL (2.5-4.9)
[2024-01-31 08:34] LABS: DIFFERENTIAL COMMENT 0; EOSINOPHILS % 2.8 % (0.0-5.0); HEMATOCRIT. 27.2 % (36.0-48.0); HEMOGLOBIN. 8.4 g/dL (12.0-16.0); LYMPHOCYTES % 12.2 % (20.0-50.0); MEAN CORPUSCULAR HEMOGLOBIN 23.7 pg (28.0-32.0); MEAN CORPUSCULAR HGB CONC 30.8 g/dL (31.0-37.0); MEAN CORPUSCULAR VOLUME 76.9 fL (81.0-99.0); MEAN PLATELET VOLUME 8.4 fl (7.4-10.4); MONOCYTES % 9.7 % (2.0-8.0); NEUTROPHILS % 74.3 % (40.0-76.0); PLATELET 169 x1000/uL (130-400); RED BLOOD CELL COUNT 3.53 mill/uL (4.2-5.4); RED CELL DISTRIBUTION WIDTH 17.5 % (11.6-14.6)
[2024-02-01] VITALS: BP 136/61; PULSE 85; RESP 20; TEMP 36.61404; O2SAT 97
[2024-02-01 02:14] VITALS: PULSE 80; RESP 18; O2SAT 97
[2024-02-01 04:00] VITALS: BP 124/62; PULSE 86; RESP 19; TEMP 36.6696; O2SAT 99
[2024-02-01 08:00] VITALS: BP 113/53; PULSE 84; RESP 17; TEMP 37.05852; O2SAT 100
[2024-02-01] MEDS ORDERED: LEVO750T68 PO (10:15)
[2024-02-01] MEDS: LEVOFLOXACIN 250MG TABLET PO SCH (10:39)
[2024-02-01 12:00] VITALS: BP 113/51; PULSE 93; RESP 18; TEMP 36.61404; O2SAT 99
[2024-02-01 12:18] VITALS: BP 113/51; PULSE 93; TEMP 97.9
== END 2024-02-01 13:30 | disposition home or self-care (01) | DRG 280 ==
LOC: ER 19:05 → 5WST 01-27 05:11 → 7EST 01-27 22:02
PROVIDERS: ADMIT Internal Medicine; ATTEND Internal Medicine
PROC: 02HV33Z Insertion of Infusion Device into Superior Vena Cava, Percutaneous Approach (ICD-10-PCS; principal; 2024-01-29)
PROC: B548ZZA Ultrasonography of Superior Vena Cava, Guidance (ICD-10-PCS; 2024-01-29)
PROC: B5181ZA Fluoroscopy of Superior Vena Cava using Low Osmolar Contrast, Guidance (ICD-10-PCS; 2024-01-29)
DX: I11.0 Hypertensive heart disease with heart failure (principal); J69.0 Pneumonitis due to inhalation of food and vomit; I21.A1 Myocardial infarction type 2; E87.1 Hypo-osmolality and hyponatremia; R62.7 Adult failure to thrive; I50.9 Heart failure, unspecified; E83.42 Hypomagnesemia; Z20.822 Contact with and (suspected) exposure to COVID-19; D50.9 Iron deficiency anemia, unspecified; E78.5 Hyperlipidemia, unspecified; E11.65 Type 2 diabetes mellitus with hyperglycemia; E03.9 Hypothyroidism, unspecified; Z68.25 Body mass index [BMI] 25.0-25.9, adult; I48.91 Unspecified atrial fibrillation; Z88.0 Allergy status to penicillin; Z95.3 Presence of xenogenic heart valve; Z79.82 Long term (current) use of aspirin; Z79.899 Other long term (current) drug therapy; Z86.73 Personal history of transient ischemic attack (TIA), and cerebral infarction without residual deficits
CPT/HCPCS: 36415; 36573; 71045; 80048; 80061; 80076; 80162; 80320; 82550; 82553; 82746; 82962; 83036; 83540; 83550; 83605; 83735; 83880; 84100; 84145; 84439; 84443; 84484; 85025; 86850; 86900; 87426; 87804; 92610; 93005; 94640; 99285; C1725; C1893; J0456; J0696; J1815; J1940; J1956; J3475; J3480; J3490; J7030; G0480

== ENCOUNTER 2024-03-01 12:11 | Emergency (ER) | payer MEDICARE, MEDICAID ==
[~2024-03-01] VITALS: Ht 165.1 cm; Wt 60.0 kg
[~2024-03-01 12:11] MED LIST changes: +LEVO750T68 PO; +METF-1150 PO; -METF-874 PO
[2024-03-01 12:12] VITALS: O2SAT 100
[2024-03-01] MEDS ORDERED: MORPHINE SULFATE 4 MG/ML INJ (FOR IV/IM USE) IV ONE (14:15)
[2024-03-01] MEDS ORDERED: MORPHINE SULFATE 4 MG/ML INJ (FOR IV/IM USE) IM PRN (14:15)
[2024-03-01 15:00] VITALS: BP 68/43; PULSE 117; RESP 16; TEMP 35.94732; O2SAT 97
== END 2024-03-01 18:22 | disposition home or self-care (01) ==
LOC: ER 12:25
DX: R11.10 Vomiting, unspecified (principal); E11.9 Type 2 diabetes mellitus without complications; I10 Essential (primary) hypertension; I48.91 Unspecified atrial fibrillation; Z88.0 Allergy status to penicillin; Z79.899 Other long term (current) drug therapy; Z79.82 Long term (current) use of aspirin; Z86.73 Personal history of transient ischemic attack (TIA), and cerebral infarction without residual deficits
CPT/HCPCS: 99291